=== PATIENT | female | born 1940 | race Hispanic/Latino ===

== ENCOUNTER → 2019-04-06 | Day surgery (SDC) | payer MEDICARE, OTHER ==
[2019-04-03 14:07] LABS: BASOPHILS % 0.1 % (0.0-1.0); EOSINOPHILS # (AUTO) 0.1 (0.0-0.4); HEMATOCRIT 35.2 % (34.2-44.1); HEMOGLOBIN 11.8 g/dL (12.0-16.0); LYMPHOCYTES # (AUTO) 1.9 (1.0-3.2); LYMPHOCYTES % 20.3 % (18.0-39.1); MEAN CORPUSCULAR HEMOGLOBIN 30.1 pg (28-32); MEAN CORPUSCULAR HGB CONC 33.5 g/dL (31-35); MEAN CORPUSCULAR VOLUME 89.8 fL (81-99); MONOCYTES # (AUTO) 0.8 (0.2-0.8); MONOCYTES % 8.2 % (4.4-11.3); NEUTROPHILS # (AUTO) 6.5 (2.1-6.9); NEUTROPHILS % 70.2 % (38.7-80.0); PLATELET COUNT 265 x10e3/uL (140-360); RED BLOOD COUNT 3.92 x10e6/uL (3.6-5.1); RED CELL DISTRIBUTION WIDTH 13.3 % (11.7-14.4)
[~2019-04-06] MED LIST: AMLODIPINE BESYL5 MG PO; ASPIR-LOW81 MG PO; BENICAR HCT 401 EACH PO; CARVEDILOL12.5 MG PO; DIOVAN160 MG PO; FENTANYL CITRATE/PF 100MCG/2 ML INJ ONE; FUROSEMIDE20 MG PO; GABAPENTIN300 MG PO; HYOSCYAMINE 0.125 MG TAB ONE; METOCLOPRAMIDE10 MG PO; NEXIUM40 MG PO; NIFEDIPINE ER90 MG PO; OMEPRAZOLE PO; OXYBUTYNIN CHLOR5 MG PO; PROPOFOL IV EMULSION 10 MG/ML 50 ML VIAL ONE; SIMVASTATIN40 MG PO; TYLENOL EXTRA500 MG PO; VIT D 3 PO; VITAMIN D250000 UNIT PO; diclofenac sodium TOP
--- OUTSIDE RECORDS SUMMARY | 2019-04-06 08:06 | XMS REPORT | Continuity of Care Document ---
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 Active 11/16/2016 [facility] Discharge Diagnosis: Contusion of face 04/13/2015 04/16/2015 [facility] Discharge Diagnosis: Closed head injury without loss of consciousness 04/13/2015 04/16/2015 [facility] Discharge Diagnosis: Knee sprain 04/13/2015 04/16/2015 [facility] FALL/EYE INJURY Active 04/13/2015 [facility] Gastroesophageal reflux disease (disorder) Active 07/01/2014 Problem 02/01/2019 Data migrated from [employer] on 12/25/14. [facility] Osteopenia (disorder) Active 07/01/2014 Problem 02/01/2019 Data migrated from [employer] on 12/25/14. [facility] Chronic kidney disease stage 1 (disorder) Active 12/01/2013 Problem 02/01/2019 Data migrated from [employer] on 12/25/14. [facility] Diabetic renal disease (disorder) Active 12/01/2013 Problem 02/01/2019 Data migrated from [employer] on 12/25/14. [facility] Microalbuminuria (finding) Resolved 12/01/2013 Problem 02/01/2019 Data migrated from [employer] on 12/25/14. [facility] FALL Active 08/08/2013 [facility] Acute cystitis (disorder) Resolved 08/04/2013 Problem 02/01/2019 Data migrated from [employer] on 02/12/15. [facility] Diabetic polyneuropathy (disorder) Active 01/26/2013 Problem 02/01/2019 Data migrated from [employer] on 12/25/14. [facility] Hypercholesterolemia (disorder) Resolved 01/26/2013 Problem 02/01/2019 Data migrated from [employer] on 12/25/14. [facility] Peripheral edema (disorder) Active 01/26/2013 Problem 02/01/2019 Data migrated from [employer] on 12/25/14. [facility] Urinary incontinence (finding) Active 01/26/2013 Problem 02/01/2019 Data migrated from [employer] on 12/25/14. [facility] FLANK PAIN Active 11/18/2011 [facility] Acute urinary tract infection (disorder) Active Problem 02/01/2019 [facility] Benign essential hypertension (disorder) Active Problem 02/01/2019 [facility] Child examination finding (finding) Resolved Problem 02/01/2019 Data migrated from [employer] on 02/11/15. 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 [facility] Gynecologic examination (procedure) Resolved Problem 02/01/2019 Data migrated from [employer] on 02/11/15. [facility] Hypertensive disorder, systemic arterial (disorder) Resolved Problem 02/01/2019 [facility] Hyperlipidemia (disorder) Resolved Problem 02/01/2019 [facility] Cataract (disorder) Active Problem 02/01/2019 [facility] Mixed hyperlipidemia (disorder) Active Problem 02/01/2019 [facility] Neurologic disorder associated with diabetes mellitus (disorder) Active Problem 02/01/2019 Data migrated from [employer] on 12/25/14. [facility] Occult blood in stools (disorder) Active Problem 02/01/2019 [facility] Osteoporosis (disorder) Active Problem 02/01/2019 [facility] Patient encounter status (finding) Active Problem 02/01/2019 [facility] Pelvic mass (disorder) Active Problem 02/01/2019 [facility] Physical examination procedure (procedure) Resolved Problem 02/01/2019 [facility] migrated from [employer] [facility] 02[facility]11/[facility] Active Problem 02/01/2019 [facility] Serum vitamin B12 low (finding) Active Problem 02/01/2019 [facility] Prediabetes (finding) Active Problem 02/01/2019 [facility] Breast neoplasm screening (procedure) Active Problem 02/01/2019 [facility] Cobalamin deficiency (disorder) Active Problem 02/01/2019 [facility] Conjunctival hemorrhage (disorder) Active Problem 02/01/2019 [facility] Decreased vitamin D (finding) Active Problem 02/01/2019 [facility] Red eye (disorder) Active Problem 02/01/2019 [facility] Screening status (finding) Active Problem 02/01/2019 [facility] Tinea pedis (disorder) Active Problem 02/01/2019 [facility] Urge incontinence of urine (finding) Active Problem 02/01/2019 [facility] Neck pain (finding) Active Problem 02/01/2019 [facility] RADICULOPATHY Active [facility] INTRA-ABD AND PELVIC SWELLING, MASS AND Active [facility] AGE-RELATED OSTEOPOROSIS W/O CURRENT PAT Active [facility] Medications Medication Details Route Status Patient Instructions Ordering Provider Order Date Source Diclofenac Sodium 0.01 MG/MG Topical Gel [Voltaren] 4 gm=1 appl, TOP, BID, PRN Apply to affected area, # 100 gm, 1 Refill(s), Pharmacy: [facility] [id number] Active 01/19/2019 [facility] losartan 100 mg oral tablet =1 tab, PO, Daily, # 90 tab, DISCONTINUE VALSARTAN, Pharmacy: [facility] [id number] Active 12/10/2018 [facility] carvedilol 12.5 mg oral tablet =1 tab, PO, BID, # 180 tab, Pharmacy: [facility] [id number] Active 12/10/2018 [facility] Alendronic acid 35 MG Oral Tablet 35 mg=1 tab, PO, Q7D, # 12 tab, 1 Refill(s), Pharmacy: [facility] [id number] Active 10/17/2018 [facility] Terbinafine hydrochloride 10 MG/ML Topical Cream [Lamisil] 1 appl, TOP, BID, X 30 day, # 15 gm, 0 Refill(s), Pharmacy: [facility] [id number] No Longer Active 07/14/2018 [facility] losartan 100 mg oral tablet See Instructions, TAKE 1 TABLET BY MOUTH DAILY FOR 90 DAYS DISCONTINUE VALSARTAN, # 90 tab, 1 Refill(s), Pharmacy: [facility] [id number] No Longer Active 06/11/2018 [facility] Sterile Lubricating Tears ophthalmic solution 1 drp, RIGHT EYE, BID, # 5 mL, 0 Refill(s), [facility] [id number] No Longer Active 06/05/2018 [facility] losartan 100 mg oral tablet See Instructions, # 90 tab, TAKE 1 TABLET BY MOUTH DAILY DISCONTINUE VALSARTAN, 06/11/18 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, [facility] [id number] No Longer Active 03/18/2018 [facility] losartan 100 mg oral tablet 100 mg=1 tab, PO, Daily, discontinue valsartan, # 30 tab, 0 Refill(s), [facility] [id number] Inactive 03/17/2018 [facility] simvastatin 5 mg oral tablet 5 mg=1 tab, PO, Bedtime, # 90 tab, 1 Refill(s), [facility] [id number] Active 01/09/2018 [facility] Furosemide 20 MG Oral Tablet See Instructions, # 90 tab, Refill(s) 1, TAKE 1 TABLET BY MOUTH EVERY DAY NEEDED FOR EDEMA, [facility] [id number] Active 10/02/2017 [facility] simvastatin 20 mg oral tablet 20 mg=1 tab, PO, Bedtime, # 90 tab, 1 Refill(s), [facility] [id number] Active 09/30/2017 [facility] Furosemide 20 MG Oral Tablet 20 mg=1 tab, PO, PRN, PRN Edema, # 60 tab, 1 Refill(s), Pharmacy: [facility] [id number] No Longer Active 09/30/2017 [facility] NIFEdipine 30 mg oral tablet, extended release 30 mg=1 tab, PO, Daily, # 90 tab, 1 Refill(s), [id number] Active 09/30/2017 [facility] Vitamin B12 1000 mcg oral tablet 1,000 microgram=1 tab, PO, Daily, # 90 tab, 1 Refill(s), Pharmacy: [facility] [id number] Active 06/13/2017 [facility] Clonidine Hydrochloride 0.1 MG Oral Tablet 0.1 mg, Route: PO, Drug form: TAB, ONCE, Dosing Weight 90.909, kg, Priority: STAT, Start date: 04/13/15 16:23:00, Stop date: 04/13/15 16:23:00 Inactive 04/13/2015 [facility] Acetaminophen 325 MG / Hydrocodone Bitartrate 5 MG Oral Tablet 1 tab, Route: PO, Drug Form: TAB, Dosing Weight 90.909, kg, ONCE, STAT, Start date: 04/13/15 15:58:00, Stop date: 04/13/15 15:58:00 Inactive 04/13/2015 [facility] acetaminophen-hydrocodone 325 mg-5 mg oral tablet 1 tab, PO, Q4H, for pain, # 12 tab, 0 Refill(s) Active [place] 08/08/2013 [facility] acetaminophen-hydrocodone 325 mg-10 mg oral tablet 1 tab, Route: PO, Drug Form: TAB, Dosing Weight 72.727, kg, ONCE, STAT, Start date: 08/08/13 2:26:00, Stop date: 08/08/13 2:26:00Do not exceed 4gm/day of acetaminophen. (Same as: [place] 325/10) Inactive [place] 08/08/2013 [facility] Bactrim DS oral tablet 1 tab, PO, BID, 20 tab, Substitution Allowed, Maintenance PO Active [place] 11/19/2011 [facility] magnesium citrate 8.85% oral liquid 150 ml, PO, ONCE, 300 ml, Substitution Allowed, Maintenance, LIQ PO Active [place] 11/19/2011 [facility] Saline Flush 0.9% 5 ml, Route: IVP, Drug Form: INJ, PRN, PRN Line Flush, Start date: 11/18/11 21:01:00, Duration: 24 hr, Stop date: 11/19/11 21:00:00 IVP No Longer Active [place] 11/19/2011 [facility] Enablex 15 mg oral tablet, extended release 15 mg, 1 tab, PO, Daily, 30 tab, Substitution Allowed, ERTAB PO Active 11/19/2011 [facility] pantoprazole 40 mg oral enteric coated tablet 40 mg, 1 tab, PO, Daily, 30 tab, Substitution Allowed, ECTAB PO Active 11/19/2011 [facility] gabapentin 300 mg oral capsule 300 mg, 1 cap, PO, TID, 90 cap, Substitution Allowed PO Active 11/19/2011 [facility] hydrochlorothiazide 12.5 mg oral capsule 12.5 mg, 1 cap, PO, Daily, 30 cap, Substitution Allowed PO Active 11/19/2011 [facility] lisinopril 20 mg oral tablet 20 mg, 1 tab, PO, Daily, 30 tab, Substitution Allowed, TAB PO Active 11/19/2011 [facility] metoprolol 100 mg oral tablet, extended release 100 mg, 1 tab, PO, Daily, 30 tab, Substitution Allowed PO Active 11/19/2011 [facility] metFORmin 500 mg oral tablet 500 mg, 1 tab, PO, Before Dinner, 30 tab, Substitution Allowed PO Active 11/19/2011 [facility] tetanus-diphtheria toxoids adult intramuscular suspension 0.5 ml, Route: IM, ONCE, STAT, Start date: 01/08/11 22:02:00, Stop date: 01/08/11 22:02:00 Inactive [place] 01/09/2011 [facility] Allergies, Adverse Reactions, Alerts Substance Category Reaction Severity Reaction type Status Date Reported Comments Source amLODIPine<sup>1</sup> Assertion Drug allergy Active 07/07/2013 Data migrated from [employer] on 11/25/14. Originally documented as AMLODIPINE BESYLATE. leg swelling [facility] Immunizations Immunization Date Given Site Status Last Updated Comments Source influenza virus vaccine, inactivated<sup>1</sup> 06/05/2018 Left Deltoid completed [facility] Result Comment: Patient tolerated well [facility] influenza virus vaccine, inactivated 06/13/2017 Left Deltoid completed [facility] pneumococcal 23-valent vaccine<sup>1</sup> 08/04/2013 Right Deltoid completed [facility] Result Comment: pneumovax 23 [cvx33]. Migrated from OBS VIS: Pneumovax 23: 05/03/09 ; Data migrated from [employer] on 08/30/2015. [facility] pneumococcal 23-valent vaccine<sup>2</sup> 08/04/2013 Right Deltoid completed [facility] Result Comment: pneumovax 23 [cvx33]. Migrated from OBS VIS: Pneumovax 23: 05/03/09 ; Data migrated from [employer] on 08/30/2015. [facility] Hx influenza vaccine-unspecified<sup>2</sup> 07/30/2012 completed [facility] Result Comment: historical. Migrated from OBS ; Data migrated from [employer] on 08/30/2015. [facility] Hx influenza vaccine-unspecified<sup>1</sup> 07/30/2012 completed GE Result Comment: historical. Migrated from OBS ; Data migrated from [employer] on 08/30/2015. [facility] Hx influenza vaccine-unspecified<sup>3</sup> 07/30/2012 completed [facility] Result Comment: historical. Migrated from OBS ; Data migrated from [employer] on 08/30/2015. [facility] tetanus-diphtheria toxoids 01/09/2011 Left Deltoid completed [place] [facility] tetanus-diphtheria toxoids 01/09/2011 completed [facility] tetanus-diphtheria toxoids 01/09/2011 Left Deltoid completed [facility] Results Order Name Results Value Reference Range Date Interpretation Comments Source URINALYSIS UA WBC 6-10 /HPF *ABN* (11/18/2011 22:00:00) None Seen 11/19/2011 ABN [facility] URINALYSIS UA RBC 0-2 /HPF (11/18/2011 22:00:00) 0 - 2 11/19/2011 Normal [facility] URINALYSIS UA Bacteria Many /HPF (11/18/2011 22:00:00) None Seen 11/19/2011 Normal [facility] URINALYSIS UA Renal Epi 0-2 /LPF *ABN* (11/18/2011 22:00:00) 11/19/2011 ABN [facility] URINALYSIS Micro? Performed (11/18/2011 22:00:00) 11/19/2011 Normal [facility] URINALYSIS UA Sq Epi Rare /LPF (11/18/2011 22:00:00) Few 11/19/2011 Normal [facility] URINALYSIS UA Urobilinogen 0.2 0.1 - 1.0 11/19/2011 Normal [facility] URINALYSIS UA Nitrite Positive *ABN* (11/18/2011 22:00:00) Negative 11/19/2011 ABN [facility] URINALYSIS UA Leuk Est Large *ABN* (11/18/2011 22:00:00) Negative 11/19/2011 ABN [facility] URINALYSIS UA Bili Negative *NA* (11/18/2011 22:00:00) Negative 11/19/2011 NA [facility] URINALYSIS UA Blood Trace *ABN* (11/18/2011 22:00:00) Negative 11/19/2011 ABN [facility] URINALYSIS UA Protein Negative (11/18/2011 22:00:00) Negative 11/19/2011 Normal [facility] URINALYSIS UA Glucose Negative (11/18/2011 22:00:00) Negative 11/19/2011 Normal [facility] URINALYSIS UA Spec Grav 1.010 <=1.030 11/19/2011 Normal [facility] URINALYSIS UA pH 5.5 5.0 - 8.0 11/19/2011 Normal [facility] URINALYSIS UA Ketones Negative *NA* (11/18/2011 22:00:00) Negative 11/19/2011 NA [facility] URINALYSIS UA Color Yellow *NA* (11/18/2011 22:00:00) Yellow 11/19/2011 NA [facility] URINALYSIS UA Turbidity Clear (11/18/2011 22:00:00) Clear 11/19/2011 Normal [facility] CHEMISTRY Glucose Lvl 129 70 - 99 11/19/2011 HI <sup>1</sup>Interpretive Data: Adult reference range values reflect the clinical guidelines of the [employer]. [facility] CHEMISTRY BUN 19 7 - 22 11/19/2011 Normal [facility] CHEMISTRY Creatinine Lvl 0.7 0.5 - 1.4 11/19/2011 Normal [facility] CHEMISTRY Sodium Lvl 136 135 - 145 11/19/2011 Normal [facility] CHEMISTRY Potassium Lvl 3.4 3.5 - 5.1 11/19/2011 LOW [facility] CHEMISTRY Chloride Lvl 99 95 - 109 11/19/2011 Normal [facility] CHEMISTRY CO2 26 24 - 32 11/19/2011 Normal [facility] CHEMISTRY Calcium Lvl 9.5 8.5 - 10.5 11/19/2011 Normal [facility] CHEMISTRY Albumin Lvl 3.7 3.5 - 5.0 11/19/2011 Normal [facility] CHEMISTRY Total Protein 7.9 6.4 - 8.4 11/19/2011 Normal [facility] CHEMISTRY ALT 20 0 - 65 11/19/2011 Normal [facility] CHEMISTRY Alk Phos 97 39 - 136 11/19/2011 Normal [facility] CHEMISTRY AST 11 0 - 37 11/19/2011 Normal [facility] CHEMISTRY Bili Total 0.4 0.2 - 1.3 11/19/2011 [facility] CHEMI[facility] AGAP 14.4 10.0 - 20.0 11/19/2011 [facility] CHEMISTRY B/C Ratio 27 6 - 25 11/19/2011 [facility] CHEMISTRY Globulin 4.2 2.0 - 4.0 11/19/2011 [facility] CHEMISTRY A/G Ratio 0.9 0.7 - 1.6 11/19/2011 [facility] CHEMISTRY Lipase Lvl 230 73 - 393 11/19/2011 [facility] HEMATOLOGY Lymphocytes # 2.0 1.0 - 5.5 11/19/2011 [facility] HEMAT[facility]Y Monocytes # 0.7 0.0 - 0.8 11/19/2011 [facility] HEMATOLOGY Segs-Bands # 6.4 1.5 - 8.1 11/19/2011 [facility] HEMAT[facility] Basophils 0.2 0.0 - 1.0 11/19/2011 [facility] HEMAT[facility]Y Lymphocytes 21.3 20.0 - 40.0 11/19/2011 [facility] HEMAT[facility]Y Eosinophils # 0.2 0.0 - 0.5 11/19/2011 [facility]EMAT[facility] Basophils # 0.0 0.0 - 0.2 11/19/2011 [facility] HEMAT[facility] Monocytes 7.4 2.0 - 12.0 11/19/2011 [facility]EMAT[facility] Eosinophils 1.8 0.0 - 4.0 11/19/2011 [facility] HEMATOLOGY Segs 69.3 45.0 - 75.0 11/19/2011 [facility] HEMAT[facility]Y RBC 3.70 4.20 - 5.40 11/19/2011 L[facility]EMAT[facility] Hgb 11.7 12.0 - 16.0 11/19/2011 [facility] HEMATOLOGY WBC 9.3 3.7 - 10.4 11/19/2011 [facility] HEMAT[facility]Y MPV 10.1 7.4 - 10.4 11/19/2011 [facility] HEMAT[facility] MCHC 33.9 32.0 - 36.0 11/19/2011 [facility] HEMAT[facility] RDW 13.3 11.5 - 14.5 11/19/2011 [facility] HEMAT[facility] MCH 31.5 27.0 - 31.0 11/19/2011 [facility] HEMATOLOGY Platelet 212 133 - 450 11/19/2011 [facility] HEMAT[facility] MCV 93.0 81.0 - 99.0 11/19/2011 Normal [facility] HEMATOLOGY Hct 34.4 36.0 - 48.0 11/19/2011 LOW [facility] Pathology Reports No Data Provided for This Section Diagnostic Reports Report Value Date Source Bone Density Scan BONE DENSITY: HISTORY: Osteoporosis. TECHNIQUE: Dual energy x-ray absorptiometry (DEXA) was done over the lumbar spine and left hip on a [employer]ologic Discovery SL scanner. FINDINGS: The total T-score over the lumbar spine is -1.7, consistent with osteopenia. The previous T-score on 12/13/2008 was -2.1, consistent with osteopenia. There has been a 4.7% decrease in BMD since the last exam. The global T-score over the left hip is -1.3, consistent with osteopenia. The previous T-score was -0.9, consistent with normal bone density. There has been a 6.5% decrease in BMD since the last exam. The focal T-score over the left femoral neck is -2.8, consistent with osteoporosis. The BMD is 0.549 g/sq cm. The previous T-score over the left femoral neck was -2.5, consistent with osteoporosis, with a previous BMD of 0.575 g/sq cm. There has been a 4.5% decrease in BMD since the previous exam. IMPRESSION: 1. Osteopenia of the lumbar spine. 2. Normal global bone density of the left hip. 3. Osteoporosis of the left femoral neck. FOR YOUR INFORMATION: The World Health Organization has established that OSTEOPOROSIS occurs at -2.5 or more standard deviations (T-score) below peak bone mass (T-score on the Hologic report). OSTEOPENIA occurs at -1.0 to -2.5 standard deviations (T-score) below peak bone mass. [id number] 11/30/2016 [facility] Pelvis Complete US Clinical Indication: pelvic mass; Comparison: None US PELVIS Technique: Grayscale, color and Doppler transabdominal and transvaginal imaging of the pelvis was performed with standard technique. FINDINGS: TRANSABDOMINAL PELVIC ULTRASOUND: UTERUS: The transabdominal pelvic ultrasound evaluation of the uterus shows anteverted uterus. The uterus measures 7.9 x 3.4 x 3.6 cm. There is normal parenchymal echotexture. The endometrial stripe measures 3 mm in thickness. Calcifications in the uterus adjacent to the endometrial stripe and myometrium. OVARIES: The transabdominal pelvic sonographic images show that the right ovary measures 1.8 x 1.2 x 1.7 cm and the left ovary is not seen. No adnexal masses. OTHER FINDINGS: The transabdominal sonographic images show no free fluid in the pelvic cul-de-sac. If there is further concern, followup pelvic sonography or MRI of the pelvis may be performed. IMPRESSION: 1. No significant sonographic abnormalities of the pelvis. No pelvic mass is identified. 2. Uterine calcifications which may be calcified fibroids or vascular calcifications. 3. Right ovary unremarkable. Left ovary not seen. SL: [place] 11/23/2016 [facility] Spine cervical wo contrast CT CT BRAIN, CERVICAL SPINE, AND FACE WITHOUT CONTRAST INDICATION: Posttraumatic head, face, and neck pain COMPARISON: None DISCUSSION: BRAIN: There is no evidence of acute vascular insults, space occupying lesions, hemorrhage, hydrocephalus, midline shift, or extra-axial collections. The calvarium is intact. CERVICAL SPINE: Image detail is degraded by motion artifacts. Grossly, there are no fractures or subluxations. No gross soft tissue injuries are seen. Ligament, spinal cord and/or vascular abnormalities cannot be excluded on the basis of this examination. There is moderate to advanced spondylosis throughout the cervical spine, resulting in foraminal stenosis at multiple levels, most severe bilaterally at C3-C4. There may be moderate or severe spinal canal stenosis at C4-C5 and C5-C6. FACE: Soft tissues: There is mild left premaxillary soft tissue swelling. Bones: No fractures are visualized. Orbits: The globes are grossly intact. There are no intraconal or extraconal abnormalities. Sinuses: The paranasal sinuses are clear. IMPRESSION: 1. No acute intracranial or cervical spine abnormalities. 2. No acute facial bone fractures. 3. Moderate to advanced cervical spondylosis, potentially resulting in foraminal and spinal canal stenosis at multiple levels. SL: 16 04/13/2015 [facility] Facial bone wo contrast CT CT BRAIN, CERVICAL SPINE, AND FACE WITHOUT CONTRAST INDICATION: Posttraumatic head, face, and neck pain COMPARISON: None DISCUSSION: BRAIN: There is no evidence of acute vascular insults, space occupying lesions, hemorrhage, hydrocephalus, midline shift, or extra-axial collections. The calvarium is intact. CERVICAL SPINE: Image detail is degraded by motion artifacts. Grossly, there are no fractures or subluxations. No gross soft tissue injuries are seen. Ligament, spinal cord and/or vascular abnormalities cannot be excluded on the basis of this examination. There is moderate to advanced spondylosis throughout the cervical spine, resulting in foraminal stenosis at multiple levels, most severe bilaterally at C3-C4. There may be moderate or severe spinal canal stenosis at C4-C5 and C5-C6. FACE: Soft tissues: There is mild left premaxillary soft tissue swelling. Bones: No fractures are visualized. Orbits: The globes are grossly intact. There are no intraconal or extraconal abnormalities. Sinuses: The paranasal sinuses are clear. IMPRESSION: 1. No acute intracranial or cervical spine abnormalities. 2. No acute facial bone fractures. 3. Moderate to advanced cervical spondylosis, potentially resulting in foraminal and spinal canal stenosis at multiple levels. SL: 04/13/2015 [facility] Brain wo contrast CT CT BRAIN, CERVICAL SPINE, AND FACE WITHOUT CONTRAST INDICATION: Posttraumatic head, face, and neck pain COMPARISON: None DISCUSSION: BRAIN: There is no evidence of acute vascular insults, space occupying lesions, hemorrhage, hydrocephalus, midline shift, or extra-axial collections. The calvarium is intact. CERVICAL SPINE: Image detail is degraded by motion artifacts. Grossly, there are no fractures or subluxations. No gross soft tissue injuries are seen. Ligament, spinal cord and/or vascular abnormalities cannot be excluded on the basis of this examination. There is moderate to advanced spondylosis throughout the cervical spine, resulting in foraminal stenosis at multiple levels, most severe bilaterally at C3-C4. There may be moderate or severe spinal canal stenosis at C4-C5 and C5-C6. FACE: Soft tissues: There is mild left premaxillary soft tissue swelling. Bones: No fractures are visualized. Orbits: The globes are grossly intact. There are no intraconal or extraconal abnormalities. Sinuses: The paranasal sinuses are clear. IMPRESSION: 1. No acute intracranial or cervical spine abnormalities. 2. No acute facial bone fractures. 3. Moderate to advanced cervical spondylosis, potentially resulting in foraminal and spinal canal stenosis at multiple levels. SL: 04/13/2015 [facility] Knee 1-2 Views unilateral DX LEFT KNEE Portable, 2 views HISTORY: Left knee pain. TECHNIQUE: Frontal and lateral views of the left knee were obtained utilizing portable technique. FINDINGS: There is no evidence of effusion or other soft tissue abnormality. There are very mild degenerative changes. There slight irregularity and narrowing of the patellofemoral joint and minimal spurring superiorly. There slight narrowing of the medial compartment and mild spurring from the tibial spines pretty lateral compartment is unremarkable. There is no evidence of fracture, dislocation, or other acute osteoarticular abnormality. There are no destructive lesions. Mild vascular calcifications are noted involving the popliteal artery. CONCLUSION: 1. There is no evidence of fracture, dislocation, or acute change. 2. Mild degenerative changes. Coding: Knee AP and lateral SL: 13 Quirino Nunez M.D. 04/13/2015 [facility] Ankle 3 views RIGHT TIBIA/FIBULA RADIOGRAPH 4 VIEW, RIGHT ANKLE RADIOGRAPH 3 VIEWS INDICATION: Trauma COMPARISON: None IMPRESSION: 1. There is a minimally displaced acute comminuted fracture of the distal tibial metadiaphysis. 2. There is an acute comminuted fracture of the distal shaft of the fibula, above the level of the tibial plafond, with mild lateral displacement and medial angulation. 3. The ankle mortise is grossly intact. SL: 08/08/2013 [facility] Tibia fibula series RIGHT TIBIA/FIBULA RADIOGRAPH 4 VIEW, RIGHT ANKLE RADIOGRAPH 3 VIEWS INDICATION: Trauma COMPARISON: None IMPRESSION: 1. There is a minimally displaced acute comminuted fracture of the distal tibial metadiaphysis. 2. There is an acute comminuted fracture of the distal shaft of the fibula, above the level of the tibial plafond, with mild lateral displacement and medial angulation. 3. The ankle mortise is grossly intact. SL: 16 08/08/2013 [facility] Consultation Notes No Data Provided for This Section Discharge Summaries No Data Provided for This Section History and Physicals No Data Provided for This Section Vital Signs Vital Sign Value Date Comments Source BMI Calculated 25.94 [facility] Height 154.94 cm 01/19/[facility] Weight 62.273 01/19/2019 [facility] Temperature Oral (F) 97.8 F 01/19/2019 [facility] Respitory Rate 18 01/19/[facility] Systolic (mm Hg) 142 01/19/2019 [facility] Diastolic (mm Hg) 59 01/19/[facility] Heart Rate 49 01/19/[facility] Heart Rate 53 10/17/2018 [facility] Temperature Oral (F) 97.3 F 10/17/2018 [facility] Systolic (mm Hg) 194 10/17/2018 [facility] Diastolic (mm Hg) 69 10/17/2018 [facility] BMI Calculated 26.7 10/17/2018 [facility] Height 154.94 cm 10/17/2018 [facility] Weight 64.091 10/17/2018 [facility] Respitory Rate 14 10/17/2018 [facility] Weight 65 07/14/2018 [facility] Height 154.94 cm 07/14/2018 [facility] BMI Calculated 27.08 07/14/2018 [facility] Respitory Rate 16 07/14/2018 [facility] Heart Rate 53 07/14/2018 [facility] Temperature Oral (F) 97.0 F 07/14/2018 [facility] Systolic (mm Hg) 135 07/14/2018 [facility] Diastolic (mm Hg) 62 07/14/2018 [facility] Height 157.48 cm 06/05/2018 [facility] BMI Calculated 25.84 06/05/2018 [facility] Weight 64.091 06/05/2018 [facility] Systolic (mm Hg) 150 06/05/2018 [facility] Diastolic (mm Hg) 56 06/05/2018 [facility] Respitory Rate 15 06/05/2018 [facility] Heart Rate 69 06/05/2018 [facility] Temperature Oral (F) 97.8 F 06/05/2018 [facility] Weight 65.114 01/09/2018 [facility] BMI Calculated 25.43 01/09/2018 [facility] Temperature Oral (F) 97.6 F 01/09/2018 [facility] Heart Rate 62 01/09/2018 [facility] Height 160.02 cm 01/09/2018 [facility] Systolic (mm Hg) 111 01/09/2018 [facility] Diastolic (mm Hg) 60 01/09/2018 [facility] Weight 63.636 09/30/2017 [facility] BMI Calculated 24.85 09/30/2017 [facility] Heart Rate 51 09/30/2017 [facility] Temperature Oral (F) 97.7 F 09/30/2017 [facility] Respitory Rate 14 09/30/2017 [facility] Systolic (mm Hg) 112 09/30/2017 [facility] Diastolic (mm Hg) 52 09/30/2017 [facility] Height 160.02 cm 09/30/2017 [facility] Systolic (mm Hg) 141 06/13/2017 [facility] Diastolic (mm Hg) 60 06/13/2017 [facility] Weight 60.455 06/13/2017 [facility] Height 160.02 cm 06/13/2017 [facility] Heart Rate 99 06/13/2017 [facility] BMI Calculated 23.61 06/13/2017 [facility] Respitory Rate 14 06/13/2017 [facility] Temperature Oral (F) 97.8 F 06/13/2017 [facility] Heart Rate 60 04/13/2015 [facility] Systolic (mm Hg) 179 04/13/2015 [facility] Diastolic (mm Hg) 60 04/13/2015 [facility] Temperature Oral (F) 97.5 F 04/13/2015 [facility] Respitory Rate 18 04/13/2015 [facility] Diastolic (mm Hg) 79 04/13/2015 [facility] Respitory Rate 18 04/13/2015 [facility] Systolic (mm Hg) 229 04/13/2015 [facility] Heart Rate 51 04/13/2015 [facility] Temperature Oral (F) 98.4 F 04/13/2015 [facility] Weight 90.909 04/13/2015 [facility] Height 152.4 cm 04/13/2015 [facility] BMI Calculated 39.14 04/13/2015 [facility] Temperature Oral (F) 98.2 F 04/13/2015 [facility] Respitory Rate 18 04/13/2015 [facility] Heart Rate 56 04/13/2015 [facility] Systolic (mm Hg) 234 04/13/2015 [facility] Diastolic (mm Hg) 73 04/13/2015 [facility] Temperature Oral (F) 98.0 F 08/08/2013 [facility] Respitory Rate 18 08/08/2013 [facility] Heart Rate 60 08/08/2013 [facility] Diastolic (mm Hg) 66 08/08/2013 [facility] Systolic (mm Hg) 168 08/08/2013 [facility] Height 157.48 cm 08/08/2013 [facility] Weight 72.727 08/08/2013 [facility] Respitory Rate 18 08/08/2013 [facility] Heart Rate 56 08/08/2013 [facility] Temperature Oral (F) 98.4 F 08/08/2013 [facility] Diastolic (mm Hg) 77 08/08/2013 [facility] Systolic (mm Hg) 205 08/08/2013 [facility] Encounters Location Location Details Encounter Type Encounter Number Reason For Visit Attending Provider ADM Date DC Date Status Source [facility] Outpatient [id number] RADICULOPATHY AUDREY MCNEAL 05/14/2011 Active [facility] [id number] OBINNA THAKUR 11/18/2011 11/18/2011 Discharged [facility] [id number] GIN THOMPSON 08/08/2013 08/08/2013 Active [facility] Outpatient [id number] CASSI OLMOS 04/13/[address] [facility] [id number] Sarah Betancourten 04/13/2015 04/13/2015 [facility] Outpatient [id number] CASSI OLMOS 04/18/2015 [facility] [id number] CASSI RECAOLE 04/29/2015 [facility] [id number] CASSI RECAVARROSS 05/27/2015 [facility] [id number] CASSI OLMOS 07/08/2015 [facility] [id number] CASSI OLMOS 07/25/2015 [facility] [id number] CASSI CHACONVARROSS 08/12/2015 [facility] [id number] BILLY LEVY 11/07/2015 [facility] [id number] CASSI RECAVARROSS 01/13/2016 [facility] [id number] CASSI OLMOS 04/12/2016 [facility] [id number] CASSI RECAVARROSS 05/04/2016 [facility] [id number] CASSI OLMOS 08/03/2016 [facility] [id number] CASSI RECAVARROSS 08/17/2016 [facility] [id number] CASSI RECAVARROSS 11/16/2016 [facility] [id number] CASSI RECAVARROSS 11/23/2016 Active [facility] Outpatient [id number] Cassi Jamison 11/23/2016 11/24/2016 [facility] Outpatient [id number] Cassi Olmos Jamison 11/30/2016 12/01/2016 [facility] Outpatient [id number] CASSI CHACONVARROSS 12/03/2016 Active [facility] [id number] CASSI OLMOS 02/08/2017 Active [facility] Outpatient [id number] CASSI OLMOS 02/18/2017 Active [facility] [id number] CASSI OLMOS 02/22/2017 Active [facility] [id number] CASSI OLMOS 03/01/2017 Active [facility] [id number] CASSI OLMOS 06/06/2017 Active [facility] [id number] CASSI OLMOS 06/13/2017 Active [facility] Outpatient [id number] Cassi Jamison 06/13/2017 06/14/2017 [facility]patient [id number] CASSI OLMOS 09/19/2017 Active [facility] Ambulatory Pre-Reg [id number] Cassi Jamison 09/19/2017 09/19/2017 [facility] Outpatient [id number] CASSI OLMOS 09/30/2017 Active [facility] Outpatient [id number] Cassi Olmos Jamison 09/30/2017 10/01/2017 [facility] Outpatient [id number] CASSI OLMOS 01/09/2018 Active [facility] Outpatient [id number] Cassi Olmos Jamison 01/09/2018 01/10/2018 [facility] Outpatient [id number] CASSI OLMOS 06/05/2018 Active [facility] Outpatient [id number] Cassi Olmos Jamison 06/05/2018 06/06/2018 [facility] Outpatient [id number] CSASI OLMOS 07/10/2018 Active [facility] Ambulatory Pre-Reg [id number] Cassi Olmos Jamison 07/10/2018 07/10/2018 [facility] Outpatient [id number] CASSI OLMOS 07/14/2018 Active [facility] Outpatient [id number] Cassi Olmos Jamison 07/14/2018 07/15/2018 [facility] Outpatient [id number] Cassi Olmos Jamison 10/17/2018 Active [facility] Outpatient [id number] Cassi Olmos Jamison 10/17/2018 10/18/[address] [facility] Phone Message [id number] 11/21/2018 11/23/2018 Medical [facility] Outpatient [id number] Cassi Olmos Jamison 01/19/2019 Active [facility] Outpatient [id number] Cassi Olmos Jamison 01/19/2019 01/20/2019 Medical [facility] Procedures Procedure Code Date Perfomer Comments Source Glaucoma screening [id number] 02/26/2014 [facility] Procedure<sup>1</sup> [id number] 08/14/2013 right leg closed reduction [facility] Colonoscopy [id number] 03/20/2012 [facility] Bone density scan<sup>2</sup> [id number] 2008 [facility] Mammogram - screening<sup>3</sup> [id number] about 2 years ago Medical [facility] Procedure<sup>4</sup> 39608279 right breast surgery [facility] Cataract surgery<sup>3</sup> [id number] both [facility] Mammogram - screening<sup>4</sup> 14913045 about 2 years ago Medical [facility] Procedure<sup>5</sup> 14027267 right breast surgery [facility] Assessment and Plan No Data Provided for This Section Plan of Care No Data Provided for This Section Social History Social History Date Source Social History TypeResponse Alcohol Never Smoking Status Never smoker; Type: Cigars; Exposure to Tobacco Smoke None; Cigarette Smoking Last 365 Days No; Reg Smoking Cessation Counseling No entered on: 01/19/19 01/13/2016 [facility] Social History TypeResponse Alcohol Never Smoking Status Never smoker; Exposure to Tobacco Smoke None; Cigarette Smoking Last 365 Days No; Reg Smoking Cessation Counseling No 01/13/2016 [facility] Family History No Data Provided for This Section Advance Directives No Data Provided for This Section Functional Status No Data Provided for This Section
--- OUTSIDE RECORDS SUMMARY | 2019-04-06 08:06 | XMS REPORT | Summary of Care ---
Author Author [facility] Primary Care [facility] Organization [facility] Address Unknown Phone Unavailable Encounter HQ Delilah(FIN) [id number] Date(s): 07/10/18 - 07/10/18 [facility] [address] [address]- Attending Physician: Cassi Syed MD Vital Signs No data available for this section Problem List Condition Effective Dates Status Health Status Informant Acute cystitis1 08/04/13 Resolved Acute UTI(Confirmed) Active Benign essential Active HTN(Confirmed) Benign essential 01/26/13 Active hypertension(Confirm ed)2 Breast cancer Active screening(Confirmed) Child examination Resolved finding3 Chronic kidney 12/01/13 Active disease stage 14 B12 Active deficiency(Confirmed ) Conjunctival Active hemorrhage(Confirmed ) Low serum vitamin Active D(Confirmed) 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(Confirmed ) Diabetic 01/26/13 Active polyneuropathy5 Diabetic renal 12/01/13 Active disease6 DM (diabetes Resolved mellitus)(Confirmed) Evaluation finding7 Resolved Gastroesophageal 07/01/14 Active reflux disease(Confirmed)8 Gynecologic Resolved examination9 HTN Resolved (hypertension)(Confi rmed) Hypercholesterolemia 01/26/13 Resolved 10 Hyperlipidemia(Confi Resolved rmed) Cataract(Confirmed) Active Jtkzpjsweqofxdmu35 12/01/13 Resolved Hyperlipidemia, Active mixed(Confirmed) Cervical Active pain(Confirmed) Neurologic disorder Active associated with diabetes Occult blood Active positive stool(Confirmed) Gzhymsnlls18 07/01/14 Active Osteoporosis(Confirm Active ed) Annual physical Active exam(Confirmed) Pelvic Active mass(Confirmed) Peripheral edema14 01/26/13 Active Physical examination Resolved gwqunlmrw60 Prediabetes(Confirme Active d) Preoperative Active clearance(Confirmed) Red eye(Confirmed) Active Screen for colon Active cancer(Confirmed) Low serum vitamin Active B12(Confirmed) Tinea Active pedis(Confirmed) Urge Active incontinence(Confirm ed) Urinary 01/26/13 Active hfaimhqbzyxd87 1Data migrated from [employer] on 02/12/15. 2Data migrated from [employer] on 12/25/14. 3Data migrated from [employer] on 02/11/15. 4Data migrated from [employer] on 12/25/14. 5Data migrated from [employer] on 12/25/14. 6Data migrated from [employer] on 12/25/14. 7Data migrated from [employer] on 02/11/15. 8Data migrated from [employer] on 12/25/14. 9Data migrated from [employer] on 02/11/15. 10Data migrated from [employer] on 12/25/14. 11Data migrated from [employer] on 12/25/14. 12Data migrated from [employer] on 12/25/14. 13Data migrated from [employer] on 12/25/14. 14Data migrated from [employer] on 12/25/14. 15Data migrated from [employer] on 02/11/15. 16Data migrated from [employer] on 12/25/14. Allergies, Adverse Reactions, Alerts Substance Reaction Severity Status amLODIPine1 Active 1Data migrated from [employer] on 11/25/14. Originally documented as AMLODIPINE BESYLATE. leg swelling Medications carvedilol 12.5 mg oral tablet =1 tab, PO, BID, # 180 tab, Pharmacy: [facility] [id number] Start Date: 12/10/18 Status: Ordered losartan 100 mg oral tablet 100 mg=1 tab, PO, Daily, discontinue valsartan, # 30 tab, 0 Refill(s), Pharmacy: [facility] [id number] Start Date: 03/17/18 Stop Date: 03/17/18 Status: Completed losartan 100 mg oral tablet See Instructions, TAKE 1 TABLET BY MOUTH DAILY FOR 90 DAYS DISCONTINUE VALSARTAN , # 90 tab, 1 Refill(s), Pharmacy: [facility] [id number] Start Date: 06/11/18 Stop Date: 12/10/18 Status: Completed losartan 100 mg oral tablet See Instructions, # 90 tab, TAKE 1 TABLET BY MOUTH DAILY DISCONTINUE VALSARTAN, 06/11/18 8:03:20 [employer] [employer], Pharmacy: [facility] [id number] Start Date: 03/17/18 Stop Date: 06/11/18 Status: Completed losartan 100 mg oral tablet =1 tab, PO, Daily, # 90 tab, DISCONTINUE VALSARTAN, Pharmacy: [facility] [id number] Start Date: 12/10/18 Status: Ordered Results No data available for this section Immunizations Given and Recorded Vaccine Date Status Refusal Reason influenza virus vaccine, inactivated1 06/05/18 Given influenza virus vaccine, inactivated 06/13/17 Given pneumococcal 23-valent vaccine2 08/04/13 Given Hx influenza vaccine-unspecified3 07/30/12 Given tetanus-diphtheria toxoids 01/08/11 Given 1Result Comment: Patient tolerated well 2Result Comment: pneumovax 23 [cvx33]. Migrated from OBS VIS: Pneumovax 23: 05/03/09 ; Data migrated from [employer] on 08/30/2015. 3Result Comment: historical. Migrated from OBS ; Data migrated from [employer] on 08/30/2015. Procedures Procedure Date Related Diagnosis Body Site Status Glaucoma screening 02/26/14 Completed Procedure1 08/14/13 Completed Colonoscopy 03/20/12 Completed Bone density scan2 Completed Cataract surgery3 Completed Mammogram - screening4 Completed Procedure5 Completed 1right leg closed reduction 84780 3both 4about 2 years ago 5right breast surgery Social History Social History Type Response Alcohol Never Smoking Status Never smoker; Type: Cigars; Exposure to Tobacco Smoke None; Cigarette Smoking Last 365 Days No; Reg Smoking Cessation Counseling No entered on: 01/19/19 Assessment and Plan No data available for this section
--- OUTSIDE RECORDS SUMMARY | 2019-04-06 08:06 | XMS REPORT | CCD ---
Author Author Auto Generated Organization [facility] Address Unknown Phone Unavailable Care Team Providers Care Assistant Signal Maintainer Name Role Phone Rosmery Orozco CP Unavailable PCP, Not listed in HQ CP Unavailable Asmita Glez CP Unavailable ChartServer, Login CP Unavailable Jovan Mcneal RP Marcial Cortez CP Allergies, Adverse Reactions, Alerts Substance Reaction Status NKDA ?? Active Medications Medication Instructions Start Date End Date Status tetanus-diphtheria 0.5 ml, Route: IM, ONCE, STAT, 01/08/2011 01/08/2011 Completed toxoids adult Start date: 01/08/11 22:02:00, Stop intramuscular date: 01/08/11 22:02:00 suspension Immunizations Vaccine Date Status tetanus-diphtheria toxoids 01/08/2011 Auth (Verified)
--- OUTSIDE RECORDS SUMMARY | 2019-04-06 08:06 | XMS REPORT | Summary of Care ---
Author Author [facility] Organization [facility] Address Unknown Phone Unavailable Encounter AURELIO Mazariegos(ZAKIA) [id number] Date(s): 11/30/16 - 11/30/16 [facility] [address] [place] [address]- Discharge Disposition: Home or Self Care Attending Physician: Cassi Syed MD Referring Physician: Cassi Syed MD Vital Signs No data available for this section Problem List Condition Effective Dates Status Health Status Informant Acute cystitis1 08/04/13 Resolved Acute UTI(Confirmed) Active Benign essential Active HTN(Confirmed) Benign essential 01/26/13 Active hypertension(Confirm ed)2 Child examination Resolved finding3 Chronic kidney 12/01/13 Active disease stage 14 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(Confirmed ) Diabetic 01/26/13 Active polyneuropathy5 Diabetic renal 12/01/13 Active disease6 DM (diabetes Resolved mellitus)(Confirmed) Evaluation finding7 Resolved Gastroesophageal 07/01/14 Active reflux disease8 Gynecologic Resolved examination9 HTN Resolved (hypertension)(Confi rmed) Hypercholesterolemia 01/26/13 Active 10 Hyperlipidemia(Confi Resolved rmed) Cataract(Confirmed) Active Asjqekvvagpmejqe07 12/01/13 Active Hyperlipidemia, Active mixed(Confirmed) Neurologic disorder Active associated with diabetes ujewwodx59 Xnwaymfbfw49 07/01/14 Active Osteoporosis(Confirm Active ed) Pelvic Active mass(Confirmed) Peripheral edema14 01/26/13 Active Physical examination Resolved menpqacyl80 Low serum vitamin Active B12(Confirmed) Urinary 01/26/13 Active xwdditqtxlrs22 1Data migrated from [employer] on 02/12/15. [...] documented as AMLODIPINE BESYLATE. leg swelling Medications No data available for this section Results No data available for this section Immunizations Given and Recorded Vaccine Date Status Refusal Reason Hx influenza vaccine-unspecified1 07/30/12 Given pneumococcal 23-valent vaccine2 08/04/13 Given tetanus-diphtheria toxoids 01/08/11 Given 1Result Comment: historical. Migrated from OBS ; Data migrated from [employer] on 08/30/2015. 2Result Comment: pneumovax 23 [cvx33]. Migrated from OBS VIS: Pneumovax 23: 05/03/09 ; Data migrated from [employer] on 08/30/2015. Procedures Procedure Date Related Diagnosis Body Site Glaucoma screening 02/26/14 Procedure1 08/14/13 Colonoscopy 03/20/12 Bone density scan2 Mammogram - screening3 Procedure4 1right leg closed reduction 06525 3about 2 years ago 4right breast surgery Social History Social History Type Response Alcohol Never Smoking Status Never smoker; Exposure to Tobacco Smoke None; Cigarette Smoking Last 365 Days No; Reg Smoking Cessation Counseling No Assessment and Plan No data available for this section
--- OUTSIDE RECORDS SUMMARY | 2019-04-06 08:06 | XMS REPORT | Summary of Care ---
Author Author [facility] Organization [facility] Address Unknown Phone Unavailable Encounter HQ Delilah(ZAKIA) [id number] Date(s): 04/13/15 - 04/13/15 [facility] [address] [place] [address]- [phone] Discharge Diagnosis: Contusion of face Discharge Diagnosis: Closed head injury without loss of consciousness Discharge Diagnosis: Knee sprain Discharge Disposition: Home Attending Physician: Sarah Hebert DO Vital Signs 1 2 3 Most recent to oldest [Reference Range]: 152.4 cm (04/13/15 11:41 AM) Height 1 2 3 Most recent to oldest [Reference Range]: 97.5 DegF (04/13/15 6:25 PM) 98.4 DegF (04/13/15 3:56 PM) 98.2 DegF (04/13/15 11:41 AM) Temperature Oral [96.4-99.1 DegF] 1 2 3 Most recent to oldest [Reference Range]: 179/60 mmHg *HI* (04/13/15 6:25 PM) 234/73 mmHg *HI* (04/13/15 11:41 AM) Blood Pressure [90-140/60-90 mmHg] 229 mmHg *HI* (04/13/15 3:56 PM) Systolic Blood Pressure [90-140 mmHg] 1 2 3 Most recent to oldest [Reference Range]: 79 mmHg (04/13/15 3:56 PM) Diastolic Blood Pressure [60-90 mmHg] 1 2 3 Most recent to oldest [Reference Range]: 18 BRMIN (04/13/15 6:25 PM) 18 BRMIN (04/13/15 3:56 PM) 18 BRMIN (04/13/15 11:41 AM) Respiratory Rate [14-20 BRMIN] 1 2 3 Most recent to oldest [Reference Range]: 60 bpm (04/13/15 6:25 PM) 51 bpm *LOW* (04/13/15 3:56 PM) 56 bpm *LOW* (04/13/15 11:41 AM) Peripheral Pulse Rate [60-100 bpm] 1 2 3 Most recent to oldest [Reference Range]: 90.909 kg (04/13/15 11:41 AM) Weight 1 2 3 Most recent to oldest [Reference Range]: 39.14 m2 (04/13/15 11:41 AM) Body Mass Index Problem List Condition Effective Dates Status Health Status Informant Benign essential 01/26/13 Active hypertension1 Chronic kidney 12/01/13 Active disease stage 12 Diabetic 01/26/13 Active polyneuropathy3 Diabetic renal 12/01/13 Active disease4 DM (diabetes Resolved mellitus)(Confirmed) Gastroesophageal 07/01/14 Active reflux disease5 HTN Resolved (hypertension)(Confi rmed) Hypercholesterolemia 01/26/13 Active 6 Hyperlipidemia(Confi Resolved rmed) Microalbuminuria7 12/01/13 Active Neurologic disorder Active associated with diabetes mellitus8 Osteopenia9 07/01/14 Active Peripheral edema10 01/26/13 Active Urinary 01/26/13 Active 1Data migrated from [employer] on 12/25/14. 2Data migrated from [employer] on 12/25/14. 3Data migrated from [employer] on 12/25/14. 4Data migrated from [employer] on 12/25/14. 5Data migrated from [employer] on 12/25/14. 6Data migrated from [employer] on 12/25/14. 7Data migrated from [employer] on 12/25/14. 8Data migrated from [employer] on 12/25/14. 9Data migrated from [employer] on 12/25/14. 10Data migrated from [employer] on 12/25/14. 11Data migrated from [employer] on 12/25/14. Allergies, Adverse Reactions, Alerts Substance Reaction Severity Status amLODIPine1 Active 1Data migrated from [employer] on 11/25/14. Originally documented as AMLODIPINE BESYLATE. leg swelling Medications acetaminophen-hydrocodone 325 mg-5 mg oral tablet 1 tab, Route: PO, Drug Form: TAB, Dosing Weight 90.909, kg, ONCE, STAT, Start da te: 04/13/15 15:58:00, Stop date: 04/13/15 15:58:00 Start Date: 04/13/15 Stop Date: 04/13/15 Status: Completed cloNIDine 0.1 mg oral tablet 0.1 mg, Route: PO, Drug form: TAB, ONCE, Dosing Weight 90.909, kg, Priority: STA T, Start date: 04/13/15 16:23:00, Stop date: 04/13/15 16:23:00 Start Date: 04/13/15 Stop Date: 04/13/15 Status: Completed Results No data available for this section Immunizations Vaccine Date Refusal Reason tetanus-diphtheria toxoids 01/08/11 Procedures Procedure Date Related Diagnosis Body Site Glaucoma screening 02/26/14 Procedure1 08/14/13 Colonoscopy 03/20/12 Bone density scan2 Mammogram - screening3 Procedure4 1right leg closed reduction 75396 3about 2 years ago 4right breast surgery Social History Social History Type Response Alcohol Never Smoking Status Never smoker; Exposure to Tobacco Smoke None; Cigarette Smoking Last 365 Days No; Reg Smoking Cessation Counseling No Assessment and Plan No data available for this section
--- OUTSIDE RECORDS SUMMARY | 2019-04-06 08:06 | XMS REPORT | Summary of Care ---
Author Author [facility] Organization [facility] Address Unknown Phone Unavailable Encounter AURELIO Mazariegos(ZAKIA) [id number] Date(s): 11/23/16 - 11/23/16 [facility] [address] [place] [address]- Discharge Disposition: Home or Self Care Attending [...] Active 10 Hyperlipidemia(Confi Resolved rmed) Cataract(Confirmed) Active Enoizqysfnbsffjd85 12/01/13 Active Hyperlipidemia, Active mixed(Confirmed) Neurologic disorder Active associated with diabetes tpgsueri61 Maybdqrygt88 07/01/14 Active Osteoporosis(Confirm Active ed) Pelvic Active mass(Confirmed) Peripheral edema14 01/26/13 Active Physical examination Resolved bnhbxwvio84 Low serum vitamin Active B12(Confirmed) Urinary 01/26/13 Active wyqcxpaxhtln62 1Data migrated from [employer] on 02/12/15. [...] - screening3 Procedure4 1right leg closed reduction 53999 3about 2 years ago 4right breast surgery Social History Social History Type Response Alcohol Never Smoking Status Never smoker; Exposure to Tobacco Smoke None; Cigarette Smoking Last 365 Days No; Reg Smoking Cessation Counseling No Assessment and Plan No data available for this section
--- OUTSIDE RECORDS SUMMARY | 2019-04-06 08:06 | XMS REPORT | CCD ---
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 Role Phone Eliazar Iraheta CP Allergies, Adverse Reactions, Alerts Substance Reaction Status NKDA Active Medications Medication Instructions Start Date End Date Status Bactrim DS oral 1 tab, PO, BID, 20 tab, 11/18/2011 11/28/2011 Ordered tablet Substitution Allowed, Maintenance magnesium citrate 150 ml, PO, ONCE, 300 ml, 11/18/2011 Ordered 8.85% oral liquid Substitution Allowed, Maintenance, LIQ Saline Flush 0.9% 5 ml, Route: IVP, Drug Form: INJ, 11/18/2011 11/19/2011 Discontinued PRN, PRN Line Flush, Start date: 11/18/11 21:01:00, Duration: 24 hr, Stop date: 11/19/11 21:00:00 Enablex 15 mg oral 15 mg, 1 tab, PO, Daily, 30 tab, 11/18/2011 Ordered tablet, extended Substitution Allowed, ERTAB release pantoprazole 40 mg 40 mg, 1 tab, PO, Daily, 30 tab, 11/18/2011 Ordered oral enteric coated Substitution Allowed, ECTAB tablet tetanus-diphtheria 0.5 ml, Route: IM, ONCE, STAT, 01/08/2011 01/08/2011 Completed toxoids adult Start date: 01/08/11 22:02:00, Stop intramuscular date: 01/08/11 22:02:00 suspension gabapentin 300 mg 300 mg, 1 cap, PO, TID, 90 cap, 11/18/2011 Ordered oral capsule Substitution Allowed hydrochlorothiazide 12.5 mg, 1 cap, PO, Daily, 30 cap, 11/18/2011 Ordered 12.5 mg oral capsule Substitution Allowed lisinopril 20 mg 20 mg, 1 tab, PO, Daily, 30 tab, 11/18/2011 Ordered oral tablet Substitution Allowed, TAB metoprolol 100 mg 100 mg, 1 tab, PO, Daily, 30 tab, 11/18/2011 Ordered oral tablet, Substitution Allowed extended release metFORmin 500 mg 500 mg, 1 tab, PO, Before Dinner, 11/18/2011 Ordered oral tablet 30 tab, Substitution Allowed Immunizations Vaccine Date Status tetanus-diphtheria toxoids 01/08/2011 Auth (Verified) Results URINALYSIS Most recent to oldest [Reference Range]: 1 UA Turbidity [Clear] Clear (11/18/2011 22:00:00) UA Color [Yellow] Yellow *NA* (11/18/2011 22:00:00) UA pH [5.0-8.0] 5.5 (11/18/2011 22:00:00) UA Spec Grav [<=1.030] 1.010 (11/18/2011 22:00:00) UA Glucose [Negative] Negative (11/18/2011 22:00:00) UA Blood [Negative] Trace *ABN* (11/18/2011 22:00:00) UA Ketones [Negative] Negative *NA* (11/18/2011 22:00:00) UA Protein [Negative] Negative (11/18/2011 22:00:00) UA Urobilinogen [0.1-1.0 EU/dL] 0.2 EU/dL (11/18/2011 22:00:00) UA Bili [Negative] Negative *NA* (11/18/2011 22:00:00) UA Leuk Est [Negative] Large *ABN* (11/18/2011 22:00:00) UA Nitrite [Negative] Positive *ABN* (11/18/2011 22:00:00) UA WBC [None Seen /HPF] 6-10 /HPF *ABN* (11/18/2011 22:00:00) UA RBC [0-2 /HPF] 0-2 /HPF (11/18/2011 22:00:00) UA Bacteria [None Seen /HPF] Many /HPF (11/18/2011 22:00:00) UA Sq Epi [Few /LPF] Rare /LPF (11/18/2011 22:00:00) UA Renal Epi 0-2 /LPF *ABN* (11/18/2011 22:00:00) Micro? Performed (11/18/2011 22:00:00) CHEMISTRY Most recent to oldest [Reference Range]: 1 Sodium Lvl [135-145 mEq/L] 136 mEq/L (11/18/2011:01:00) Potassium Lvl [3.5-5.1 mEq/L] 3.4 mEq/L *LOW* (11/18/2011:01:00) Chloride Lvl [95-109 mEq/L] 99 mEq/L (11/18/2011:01:00) CO2 [24-32 mEq/L] 26 mEq/L (11/18/2011:01:00) AGAP [10.0-20.0 mEq/L] 14.4 mEq/L (11/18/2011:01:00) Creatinine Lvl [0.5-1.4 mg/dL] 0.7 mg/dL (11/18/2011:01:00) BUN [7-22 mg/dL] 19 mg/dL (11/18/2011:01:00) B/C Ratio [6-25] 27 *HI* (11/18/2011::00) Glucose Lvl [70-99 mg/dL] 129 mg/dL 1 *HI* (11/18/2011:01:00) Total Protein [6.4-8.4 g/dL] 7.9 g/dL (11/18/2011:01:00) Albumin Lvl [3.5-5.0 g/dL] 3.7 g/dL (11/18/2011:01:00) Globulin [2.0-4.0 g/dL] 4.2 g/dL *HI* (11/18/2011:01:00) A/G Ratio [0.7-1.6] 0.9 (11/18/2011:01:00) Calcium Lvl [8.5-10.5 mg/dL] 9.5 mg/dL (11/18/2011:01:00) ALT [0-65 U/L] 20 U/L (11/18/2011:01:00) AST [0-37 U/L] 11 U/L (11/18/2011:01:00) Alk Phos [39-136 U/L] 97 U/L (11/18/201100) Bili Total [0.2-1.3 mg/dL] 0.4 mg/dL (11/18/2011::00) Lipase Lvl [73-393 U/L] 230 U/L (11/18/201100) 1Interpretive Data: Adult reference range values reflect the clinical guidelinesof the [place] [employer]. HEMATOLOGY Most recent to oldest [Reference Range]: 1 WBC [3.7-10.4 K/CMM] 9.3 K/CMM (11/18/201100) RBC [4.20-5.40 M/CMM] 3.70 M/CMM *LOW* (11/18/201100) Hgb [12.0-16.0 g/dL] 11.7 g/dL *LOW* (11/18/2011::00) Hct [36.0-48.0 %] 34.4 % *LOW* (11/18/201100) MCV [81.0-99.0 fL] 93.0 fL (11/18/2011::00) MCH [27.0-31.0 pg] 31.5 pg *HI* (11/18/201100) MCHC [32.0-36.0 g/dL] 33.9 g/dL (11/18/2011::00) RDW [11.5-14.5 %] 13.3 % (11/18/201100) Platelet [133-450 K/CMM] 212 K/CMM (11/18/201100) MPV [7.4-10.4 fL] 10.1 fL (11/18/2011:00) Segs [45.0-75.0 %] 69.3 % (11/18/201100) Lymphocytes [20.0-40.0 %] 21.3 % (11/18/2011:00) Monocytes [2.0-12.0 %] 7.4 % (11/18/2011:00) Eosinophils [0.0-4.0 %] 1.8 % (11/18/2011 21:01:00) Basophils [0.0-1.0 %] 0.2 % (11/18/2011 21:01:00) Segs-Bands # [1.5-8.1 K/CMM] 6.4 K/CMM (11/18/2011 21:01:00) Lymphocytes # [1.0-5.5 K/CMM] 2.0 K/CMM (11/18/2011 21:01:00) Monocytes # [0.0-0.8 K/CMM] 0.7 K/CMM (11/18/2011 21:01:00) Eosinophils # [0.0-0.5 K/CMM] 0.2 K/CMM (11/18/2011 21:01:00) Basophils # [0.0-0.2 K/CMM] 0.0 K/CMM (11/18/2011 21:01:00)
--- OUTSIDE RECORDS SUMMARY | 2019-04-06 08:06 | XMS REPORT | CCD ---
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 Name Role Phone Analisa Michel CP Allergies, Adverse Reactions, Alerts Substance Reaction Status NKDA Active Medications Medication Instructions Start Date End Date Status acetaminophen-hydroc 1 tab, PO, Q4H, for pain, # 12 tab, 08/08/2013 Ordered odone 325 mg-5 mg 0 Refill(s) oral tablet tetanus-diphtheria 0.5 ml, Route: IM, ONCE, STAT, 01/08/2011 01/08/2011 Completed toxoids adult Start date: 01/08/11 22:02:00, Stop intramuscular date: 01/08/11 22:02:00 suspension acetaminophen-hydroc 1 tab, Route: PO, Drug Form: TAB, 08/08/2013 08/08/2013 Completed odone 325 mg-10 mg Dosing Weight 72.727, kg, ONCE, oral tablet STAT, Start date: 08/08/13 2:26:00, Stop date: 08/08/13 2:26:00Do not exceed 4gm/day of acetaminophen. (Same as: [place] 325/10) Immunizations Vaccine Date Status tetanus-diphtheria toxoids 01/08/2011 Auth (Verified) Vital Signs Most recent to oldest [Reference Range]: 1 2 Height 157.48 cm (08/08/2013 02:03:00) Temperature Oral [96.4-99.1 DegF] 98.0 DegF (08/08/2013 04:58:00) 98.4 DegF (08/08/2013 02:03:00) Systolic Blood Pressure [90-140 mmHg] 168 mmHg *HI* (08/08/2013 04:58:00) 205 mmHg *HI* (08/08/2013 02:03:00) Diastolic Blood Pressure [60-90 mmHg] 66 mmHg (08/08/2013 04:58:00) 77 mmHg (08/08/2013 02:03:00) Respiratory Rate [14-20 BRMIN] 18 BRMIN (08/08/2013 04:58:00) 18 BRMIN (08/08/2013 02:03:00) Peripheral Pulse Rate [60-100 bpm] 60 bpm (08/08/2013 04:58:00) 56 bpm *LOW* (08/08/2013 02:03:00) Weight 72.727 kg (08/08/2013 02:03:00)
--- OUTSIDE RECORDS SUMMARY | 2019-04-06 08:06 | XMS REPORT | Summary of Care ---
Author Author [facility] Primary [facility] Organization [facility] Address Unknown Phone Unavailable Encounter HQ Delilah(FIN) [id number] Date(s): 06/05/18 - 06/05/18 [facility] [address] [address]- Discharge Disposition: Home or Self Care Attending Physician: Cassi Syed MD Vital Signs Most recent to 1 oldest [Reference Range]: Height 157.48 cm (06/05/18 1:16 PM) Temperature Oral 97.8 DegF [96.4-99.1 DegF] (06/05/18 1:16 PM) Blood Pressure 150/56 mmHg [90-140/60-90 mmHg] *HI* (06/05/18 1:16 PM) Respiratory Rate 15 BRMIN [14-20 BRMIN] (06/05/18 1:16 PM) Peripheral Pulse 69 bpm Rate [60-100 bpm] (06/05/18 1:16 PM) Weight 64.091 kg (06/05/18 1:16 PM) Body Mass Index 25.84 m2 (06/05/18 1:16 PM) Problem List Condition Effective Dates Status Health [...] (diabetes Resolved mellitus)(Confirmed) Evaluation finding7 Resolved Gastroesophageal 12/4/14 Active reflux disease(Confirmed)8 Gynecologic Resolved examination9 HTN Resolved (hypertension)(Confi rmed) Hypercholesterolemia 01/26/13 Resolved 10 Hyperlipidemia(Confi Resolved rmed) Cataract(Confirmed) Active Zewagwighgfowdjt63 12/01/13 Resolved Hyperlipidemia, Active mixed(Confirmed) Neurologic disorder Active associated with diabetes wtumcieu46 Occult blood Active positive stool(Confirmed) Xsrdbparfc37 07/01/14 Active Osteoporosis(Confirm Active ed) Annual physical Active exam(Confirmed) Pelvic Active mass(Confirmed) Peripheral edema14 01/26/13 Active Physical examination Resolved sbltervtk89 Prediabetes(Confirme Active d) Preoperative Active clearance(Confirmed) Red eye(Confirmed) Active Screen for colon Active cancer(Confirmed) Low serum vitamin Active B12(Confirmed) Tinea Active pedis(Confirmed) Urge Active incontinence(Confirm ed) Urinary 01/26/13 Active ykelljezgviw93 1Data migrated from [employer] on 02/12/15. [...] documented as AMLODIPINE BESYLATE. leg swelling Medications Sterile Lubricating Tears ophthalmic solution 1 drp, RIGHT EYE, BID, # 5 mL, 0 Refill(s), Pharmacy: [facility] [id number] Start Date: 06/05/18 Stop Date: 10/17/18 Status: Discontinued Results No data available for this section Immunizations Given and Recorded Vaccine Date Status Refusal Reason influenza virus vaccine, inactivated1 06/05/18 Given influenza virus vaccine, inactivated 06/13/17 Given pneumococcal 23-valent vaccine2 08/04/13 Given Hx influenza vaccine-unspecified3 07/30/12 Given tetanus-diphtheria toxoids 01/08/11 Given 1Result Comment: Patient tolerated well 2Result Comment: pneumovax 23 [cvx33]. Migrated from OBS VIS: Pneumovax 23: 05/03/09 ; Data migrated from [email or web address] on 08/30/2015. 3Result Comment: historical. Migrated from OBS ; Data migrated from [email or web address] on 08/30/2015. Procedures Procedure Date Related Diagnosis Body Site Status Glaucoma screening 02/26/14 Completed Procedure1 08/14/13 Completed Colonoscopy 03/20/12 Completed Bone density scan2 Completed Cataract surgery3 Completed Mammogram - screening4 Completed Procedure5 Completed 1right leg closed reduction 70995 3both 4about 2 years ago 5right breast surgery Social History Social History Type Response Alcohol Never Smoking Status Never smoker; Type: Cigars; Exposure to Tobacco Smoke None; Cigarette Smoking Last 365 Days No; Reg Smoking Cessation Counseling No entered on: 10/17/18 Assessment and Plan No data available for this section
--- OUTSIDE RECORDS SUMMARY | 2019-04-06 08:07 | XMS REPORT | Summary of Care ---
Author Author [facility] Primary Care [facility] Organization [facility] Address Unknown Phone Unavailable Encounter HQ Bennyr_jesse(FIN) [id number] Date(s): 09/30/17 - 09/30/17 [facility] [address], [address] [place] [address]- [phone] Discharge Disposition: Home or Self Care Attending Physician: Cassi Syed MD Vital Signs Most recent to 1 oldest [Reference Range]: Height 160.02 cm (09/30/17 3:14 PM) Temperature Oral 97.7 DegF [96.4-99.1 DegF] (09/30/17 3:14 PM) Blood Pressure 112/52 mmHg [90-140/60-90 mmHg] (09/30/17 3:14 PM) Respiratory Rate 14 BRMIN [14-20 BRMIN] (09/30/17 3:14 PM) Peripheral Pulse 51 bpm Rate [60-100 bpm] *LOW* (09/30/17 3:14 PM) Weight 63.636 kg (09/30/17 3:14 PM) Body Mass Index 24.85 m2 (09/30/17 3:14 PM) Problem List Condition Effective Dates Status [...] Resolved examination9 HTN Resolved (hypertension)(Confi rmed) Hypercholesterolemia 7/1/13 Resolved 10 Hyperlipidemia(Confi Resolved rmed) Cataract(Confirmed) Active Qndgqrapxlrucyte32 12/01/13 Resolved Hyperlipidemia, Active mixed(Confirmed) Neurologic disorder Active associated with diabetes kesllazu02 Occult blood Active positive stool(Confirmed) Tdhoxrnpdo16 07/01/14 Active Osteoporosis(Confirm Active ed) Annual physical Active exam(Confirmed) Pelvic Active mass(Confirmed) Peripheral edema14 01/26/13 Active Physical examination Resolved qmdkowlvb31 Prediabetes(Confirme Active d) Preoperative Active clearance(Confirmed) Low serum vitamin Active B12(Confirmed) Urinary 01/26/13 Active pyznglrtnipy64 1Data migrated from [employer] on 02/12/15. [...] documented as AMLODIPINE BESYLATE. leg swelling Medications furosemide 20 mg oral tablet See Instructions, # 90 tab, Refill(s) 1, TAKE 1 TABLET BY MOUTH EVERY DAY NEE DED FOR EDEMA, Pharmacy: [facility] [id number] Start Date: 10/02/17 Status: Ordered furosemide 20 mg oral tablet 20 mg=1 tab, PO, PRN, PRN Edema, # 60 tab, 1 Refill(s), Pharmacy: [facility] [id number] Start Date: 09/30/17 Stop Date: 10/02/17 Status: Completed NIFEdipine 30 mg oral tablet, extended release 30 mg=1 tab, PO, Daily, # 90 tab, 1 Refill(s), Pharmacy: [id number] Start Date: 09/30/17 Stop Date: 03/29/18 Status: Ordered simvastatin 20 mg oral tablet 20 mg=1 tab, PO, Bedtime, # 90 tab, 1 Refill(s), Pharmacy: [facility] [id number] Start Date: 09/30/17 Stop Date: 03/29/18 Status: Ordered Results No data available for this section Immunizations Given and Recorded Vaccine Date Status Refusal Reason influenza virus vaccine, inactivated 06/13/17 Given pneumococcal 23-valent vaccine1 08/04/13 Given Hx influenza vaccine-unspecified2 07/30/12 Given tetanus-diphtheria toxoids 01/08/11 Given 1Result Comment: pneumovax 23 [cvx33]. Migrated from OBS VIS: Pneumovax 23: 05/03/09 ; Data migrated from [employer] on 08/30/2015. 2Result Comment: historical. Migrated from OBS ; Data migrated from [employer] on 08/30/2015. Procedures Procedure Date Related Diagnosis Body Site Status Glaucoma screening 02/26/14 Completed Procedure1 08/14/13 Completed Colonoscopy 03/20/12 Completed Bone density scan2 Completed Mammogram - screening3 Completed Procedure4 Completed 1right leg closed reduction 81397 3about 2 years ago 4right breast surgery Social History Social History Type Response Alcohol Never Smoking Status Never smoker; Type: Cigars; Exposure to Tobacco Smoke None; Cigarette Smoking Last 365 Days No; Reg Smoking Cessation Counseling No entered on: 09/30/17 Assessment and Plan No data available for this section
--- OUTSIDE RECORDS SUMMARY | 2019-04-06 08:07 | XMS REPORT | Summary of Care ---
Author Author [facility] Primary Care [facility] Organization [facility] Address Unknown Phone Unavailable Encounter HQ Concha_jesse(FIN) [id number] Date(s): 09/19/17 - 09/19/17 [facility] [address], [address] [place], [place] [address]- [phone] Attending Physician: Cassi Syed MD Vital Signs [...] Resolved 10 Hyperlipidemia(Confi Resolved rmed) Cataract(Confirmed) Active Zwbnqafgipilzqwy09 12/01/13 Resolved Hyperlipidemia, Active mixed(Confirmed) Neurologic disorder Active associated with diabetes jorejgtp22 Occult blood Active positive stool(Confirmed) Uvlvcfykdg62 07/01/14 Active Osteoporosis(Confirm Active ed) Annual physical Active exam(Confirmed) Pelvic Active mass(Confirmed) Peripheral edema14 01/26/13 Active Physical examination Resolved lpkejfsqx78 Prediabetes(Confirme Active d) Preoperative Active clearance(Confirmed) Low serum vitamin Active B12(Confirmed) Urinary 01/26/13 Active fjrtdriokfxe23 1Data migrated from [employer] on 02/12/15. 2Data migrated from [employer] on 12/25/14. 3Data migrated from [employer] on 7/17/15. 4Data migrated from [employer] on 12/25/14. [...] from [employer] on 08/30/2015. 2Result Comment: historical. Migrated from OBS ; Data migrated from [employer] on 08/30/2015. Procedures Procedure Date Related Diagnosis Body Site Status Glaucoma screening 02/26/14 Completed Procedure1 08/14/13 Completed Colonoscopy 03/20/12 Completed Bone density scan2 Completed Mammogram - screening3 Completed Procedure4 Completed 1right leg closed reduction 15887 3about 2 years ago 4right breast surgery Social History Social History Type Response Alcohol Never Smoking Status Never smoker; Type: Cigars; Exposure to Tobacco Smoke None; Cigarette Smoking Last 365 Days No; Reg Smoking Cessation Counseling No entered on: 09/30/17 Assessment and Plan No data available for this section
--- OUTSIDE RECORDS SUMMARY | 2019-04-06 08:07 | XMS REPORT | Summary of Care ---
Author Author [facility] Primary [facility] Organization [facility] Address Unknown Phone Unavailable Encounter HQ Delilah(FIN) [id number] Date(s): 07/14/18 - 07/14/18 [facility] [address] [address]- Discharge Disposition: Home or Self Care Attending Physician: Cassi Syed MD Vital Signs Most recent to 1 oldest [Reference Range]: Height 154.94 cm (07/14/18 1:24 PM) Temperature Oral 97.0 DegF [96.4-99.1 DegF] (07/14/18 1:24 PM) Blood Pressure 135/62 mmHg [90-140/60-90 mmHg] (07/14/18 1:24 PM) Respiratory Rate 16 BRMIN [14-20 BRMIN] (07/14/18 1:24 PM) Peripheral Pulse 53 bpm Rate [60-100 bpm] *LOW* (07/14/18 1:24 PM) Weight 65 kg (07/14/18 1:24 PM) Body Mass Index 27.08 m2 (07/14/18 1:24 PM) Problem List Condition Effective Dates Status [...] Resolved 10 Hyperlipidemia(Confi Resolved rmed) Cataract(Confirmed) Active Pddqtqcpgodmkowf93 12/01/13 Resolved Hyperlipidemia, Active mixed(Confirmed) Cervical Active pain(Confirmed) Neurologic disorder Active associated with diabetes jllxraoy70 Occult blood Active positive stool(Confirmed) Gcmvgzespm02 07/01/14 Active Osteoporosis(Confirm Active ed) Annual physical Active exam(Confirmed) Pelvic Active mass(Confirmed) Peripheral edema14 01/26/13 Active Physical examination Resolved zvhcnoiko94 Prediabetes(Confirme Active d) Preoperative Active clearance(Confirmed) Red eye(Confirmed) Active Screen for colon Active cancer(Confirmed) Low serum vitamin Active B12(Confirmed) Tinea Active pedis(Confirmed) Urge Active incontinence(Confirm ed) Urinary 01/26/13 Active kjyekztptkkx28 1Data migrated from [employer] on 02/12/15. [...] documented as AMLODIPINE BESYLATE. leg swelling Medications LamISIL AT [employer] 1% topical cream 1 appl, TOP, BID, X 30 day, # 15 gm, 0 Refill(s), Pharmacy: [facility] [id number] Start Date: 07/14/18 Stop Date: 08/13/18 Status: Completed Results No data available for [...] Pneumovax 23: 05/03/09 ; Data migrated from [employer] on 08/30/2015. 3Result Comment: historical. Migrated from OBS ; Data migrated from [employer] on 08/30/2015. Procedures Procedure Date Related Diagnosis Body Site Status Glaucoma screening 02/26/14 Completed Procedure1 08/14/13 Completed Colonoscopy 03/20/12 Completed Bone density scan2 Completed Cataract surgery3 Completed Mammogram - screening4 Completed Procedure5 Completed 1right leg closed reduction 20674 3both 4about 2 years ago 5right breast surgery Social History Social History Type Response Alcohol Never Smoking Status Never smoker; Type: Cigars; Exposure to Tobacco Smoke None; Cigarette Smoking Last 365 Days No; Reg Smoking Cessation Counseling No entered on: 01/19/19 Assessment and Plan No data available for this section
--- OUTSIDE RECORDS SUMMARY | 2019-04-06 08:07 | XMS REPORT | Summary of Care ---
Author Author [facility] Primary Care [facility] Organization [facility] Address Unknown Phone Unavailable Encounter HQ Delilah(FIN) [id number] Date(s): 01/19/19 - 01/19/19 [facility] [address] [address]- Discharge Disposition: Home or Self Care Attending Physician: Cassi Syed MD Vital Signs Most recent to 1 oldest [Reference Range]: Height 154.94 cm (01/19/19 2:22 PM) Temperature Oral 97.8 DegF [96.4-99.1 DegF] (01/19/19 2:22 PM) Blood Pressure 142/59 mmHg [90-140/60-90 mmHg] *HI* (01/19/19 2:22 PM) Respiratory Rate 18 BRMIN [14-20 BRMIN] (01/19/19 2:22 PM) Peripheral Pulse 49 bpm Rate [60-100 bpm] *LOW* (01/19/19 2:22 PM) Weight 62.273 kg (01/19/19 2:22 PM) Body Mass Index 25.94 m2 (01/19/19 2:22 PM) Problem List Condition Effective Dates Status [...] Resolved 10 Hyperlipidemia(Confi Resolved rmed) Cataract(Confirmed) Active Bpqjeirlrnerlpcg62 12/01/13 Resolved Hyperlipidemia, Active mixed(Confirmed) Cervical Active pain(Confirmed) Neurologic disorder Active associated with diabetes Occult blood Active positive stool(Confirmed) Xssxwrrtmv78 07/01/14 Active Osteoporosis(Confirm Active ed) Annual physical Active exam(Confirmed) Pelvic Active mass(Confirmed) Peripheral edema14 01/26/13 Active Physical examination Resolved ieyhfytoa09 Prediabetes(Confirme Active d) Preoperative Active clearance(Confirmed) Red eye(Confirmed) Active Screen for colon Active cancer(Confirmed) Low serum vitamin Active B12(Confirmed) Tinea Active pedis(Confirmed) Urge Active incontinence(Confirm ed) Urinary 01/26/13 Active eplbkaizghxs68 1Data migrated from [employer] on 02/12/15. [...] documented as AMLODIPINE BESYLATE. leg swelling Medications Voltaren Topical 1% topical gel 4 gm=1 appl, TOP, BID, PRN Apply to affected area, # 100 gm, 1 Refill(s), Pharma cy: [id number] Start Date: 01/19/19 Status: Ordered Results No data available for [...] Pneumovax 23: 05/03/09 ; Data migrated from [employer] on 08/30/2015. 3Result Comment: historical. Migrated from OBS ; Data migrated from [employer] on 08/30/2015. Procedures Procedure Date Related Diagnosis Body Site Status Glaucoma screening 02/26/14 Completed Procedure1 08/14/13 Completed Colonoscopy 03/20/12 Completed Bone density scan2 Completed Cataract surgery3 Completed Mammogram - screening4 Completed Procedure5 Completed 1right leg closed reduction 83410 3both 4about 2 years ago 5right breast surgery Social History Social History Type Response Alcohol Never Smoking Status Never smoker; Type: Cigars; Exposure to Tobacco Smoke None; Cigarette Smoking Last 365 Days No; Reg Smoking Cessation Counseling No entered on: 01/19/19 Assessment and Plan No data available for this section
--- OUTSIDE RECORDS SUMMARY | 2019-04-06 08:07 | XMS REPORT | Summary of Care ---
Author Author [facility] Primary Care [facility] Organization [facility] Address Unknown Phone Unavailable Encounter HQ Delilah(FIN) [id number] Date(s): 01/09/18 - 01/09/18 [facility] [address] [facility] [address], [address] [place] [address]- [phone] Discharge Disposition: Home or Self Care Attending Physician: Cassi Syed MD Vital Signs Most recent to 1 oldest [Reference Range]: Height 160.02 cm (01/09/18 2:47 PM) Temperature Oral 97.6 DegF [96.4-99.1 DegF] (01/09/18 2:47 PM) Blood Pressure 111/60 mmHg [90-140/60-90 mmHg] (01/09/18 2:47 PM) Peripheral Pulse 62 bpm Rate [60-100 bpm] (01/09/18 2:47 PM) Weight 65.114 kg (01/09/18 2:47 PM) Body Mass Index 25.43 m2 (01/09/18 2:47 PM) Problem List Condition Effective Dates Status [...] Resolved 10 Hyperlipidemia(Confi Resolved rmed) Cataract(Confirmed) Active Qiyhinlnejwktxpz37 12/01/13 Resolved Hyperlipidemia, Active mixed(Confirmed) Neurologic disorder Active associated with diabetes azwifrav32 Occult blood Active positive stool(Confirmed) Nmxnovxjbn59 07/01/14 Active Osteoporosis(Confirm Active ed) Annual physical Active exam(Confirmed) Pelvic Active mass(Confirmed) Peripheral edema14 01/26/13 Active Physical examination Resolved swlrzooat48 Prediabetes(Confirme Active d) Preoperative Active clearance(Confirmed) Low serum vitamin Active B12(Confirmed) Urinary 01/26/13 Active ribhlwsnukns81 1Data migrated from [employer] on 02/12/15. [...] documented as AMLODIPINE BESYLATE. leg swelling Medications simvastatin 5 mg oral tablet 5 mg=1 tab, PO, Bedtime, # 90 tab, 1 Refill(s), Pharmacy: [facility] [id number] Start Date: 01/09/18 Stop Date: 07/08/18 Status: Ordered Results No data available for this section Immunizations Given and Recorded Vaccine Date Status Refusal Reason influenza virus vaccine, inactivated 06/13/17 Given pneumococcal 23-valent vaccine1 08/04/13 Given Hx influenza vaccine-unspecified2 07/30/12 Given tetanus-diphtheria toxoids 01/08/11 Given 1Result Comment: pneumovax 23 [cvx33]. Migrated from OBS VIS: Pneumovax 23: 05/03/09 ; Data migrated from [employer] on 08/30/2015. 2Result Comment: historical. Migrated from OBS ; Data migrated from [employer] on 08/30/2015. Procedures Procedure Date Related Diagnosis Body Site Status Glaucoma screening 02/26/14 Completed Procedure1 08/14/13 Completed Colonoscopy 03/20/12 Completed Bone density scan2 Completed Mammogram - screening3 Completed Procedure4 Completed 1right leg closed reduction 45392 3about 2 years ago 4right breast surgery Social History Social History Type Response Alcohol Never Smoking Status Never smoker; Type: Cigars; Exposure to Tobacco Smoke None; Cigarette Smoking Last 365 Days No; Reg Smoking Cessation Counseling No entered on: 01/09/18 Assessment and Plan No data available for this section
--- OUTSIDE RECORDS SUMMARY | 2019-04-06 08:07 | XMS REPORT | Summary of Care ---
Author Author [facility] Primary [facility] Organization [facility] Address Unknown Phone Unavailable Encounter AURELIO Mazariegos(FIN) [id number] Date(s): 10/17/18 - 10/17/18 [facility] [address] [address]- Discharge Disposition: Home or Self Care Attending Physician: Cassi Syed MD Vital Signs Most recent to 1 oldest [Reference Range]: Height 154.94 cm (10/17/18 8:39 AM) Temperature Oral 97.3 DegF [96.4-99.1 DegF] (10/17/18 8:39 AM) Blood Pressure 194/69 mmHg [90-140/60-90 mmHg] *HI* (10/17/18 8:39 AM) Respiratory Rate 14 BRMIN [14-20 BRMIN] (10/17/18 8:39 AM) Peripheral Pulse 53 bpm Rate [60-100 bpm] *LOW* (10/17/18 8:39 AM) Weight 64.091 kg (10/17/18 8:39 AM) Body Mass Index 26.7 m2 (10/17/18 8:39 AM) Problem List Condition Effective Dates Status Health [...] Resolved 10 Hyperlipidemia(Confi Resolved rmed) Cataract(Confirmed) Active Krnqfrsudjbdbozx25 12/01/13 Resolved Hyperlipidemia, Active mixed(Confirmed) Neurologic disorder Active associated with diabetes Occult blood Active positive stool(Confirmed) Ickkjygugv61 07/01/14 Active Osteoporosis(Confirm Active ed) Annual physical Active exam(Confirmed) Pelvic Active mass(Confirmed) Peripheral edema14 01/26/13 Active Physical examination Resolved qnrpysnjy54 Prediabetes(Confirme Active d) Preoperative Active clearance(Confirmed) Red eye(Confirmed) Active Screen for colon Active cancer(Confirmed) Low serum vitamin Active B12(Confirmed) Tinea Active pedis(Confirmed) Urge Active incontinence(Confirm ed) Urinary 01/26/13 Active kvakiazexlyu56 1Data migrated from [employer] on 02/12/15. [...] documented as AMLODIPINE BESYLATE. leg swelling Medications alendronate 35 mg oral tablet 35 mg=1 tab, PO, Q7D, # 12 tab, 1 Refill(s), Pharmacy: [id number] Start Date: 10/17/18 Stop Date: 04/03/19 Status: Ordered Results No data available for [...] Pneumovax 23: 05/03/09 ; Data migrated from [employer] on 08/30/2015. 3Result Comment: historical. Migrated from OBS ; Data migrated from [employer] on 08/30/2015. Procedures Procedure Date Related Diagnosis Body Site Status Glaucoma screening 02/26/14 Completed Procedure1 08/14/13 Completed Colonoscopy 03/20/12 Completed Bone density scan2 Completed Cataract surgery3 Completed Mammogram - screening4 Completed Procedure5 Completed 1right leg closed reduction 55139 3both 4about 2 years ago 5right breast surgery Social History Social History Type Response Alcohol Never Smoking Status Never smoker; Type: Cigars; Exposure to Tobacco Smoke None; Cigarette Smoking Last 365 Days No; Reg Smoking Cessation Counseling No entered on: 10/17/18 Assessment and Plan No data available for this section
--- OUTSIDE RECORDS SUMMARY | 2019-04-06 08:07 | XMS REPORT | Summary of Care ---
Author Author [facility] Primary Care [facility] Organization [facility] Address Unknown Phone Unavailable Encounter HQ Concha_jesse(FIN) [id number] Date(s): 09/19/17 - 09/19/17 [facility] [address] [facility], [address] [place], [place] [address]- [phone] Attending Physician: Cassi Syed MD Vital Signs [...] Resolved 10 Hyperlipidemia(Confi Resolved rmed) Cataract(Confirmed) Active Lnnfqjynujelzrfm02 12/01/13 Resolved Hyperlipidemia, Active mixed(Confirmed) Neurologic disorder Active associated with diabetes Occult blood Active positive stool(Confirmed) Eiruphcmte59 07/01/14 Active Osteoporosis(Confirm Active ed) Annual physical Active exam(Confirmed) Pelvic Active mass(Confirmed) Peripheral edema14 01/26/13 Active Physical examination Resolved uwejzncnd89 Prediabetes(Confirme Active d) Preoperative Active clearance(Confirmed) Low serum vitamin Active B12(Confirmed) Urinary 01/26/13 Active hmlwgvcidwsf24 1Data migrated from [employer] on 02/12/15. [...] Completed Procedure4 Completed 1right leg closed reduction 52776 3about 2 years ago 4right breast surgery Social History Social History Type Response Alcohol Never Smoking Status Never smoker; Type: Cigars; Exposure to Tobacco Smoke None; Cigarette Smoking Last 365 Days No; Reg Smoking Cessation Counseling No entered on: 09/30/17 Assessment and Plan No data available for this section
--- OUTSIDE RECORDS SUMMARY | 2019-04-06 08:07 | XMS REPORT | Summary of Care ---
Author Author [facility] Primary Care [facility] Organization [facility] Address Unknown Phone Unavailable Encounter HQ Concha_jesse(FIN) [id number] Date(s): 11/21/18 - 11/22/18 [facility] [address] [address] [phone] Vital Signs No data available for this [...] Resolved 10 Hyperlipidemia(Confi Resolved rmed) Cataract(Confirmed) Active Juzohprtpgxvhzsy14 12/01/13 Resolved Hyperlipidemia, Active mixed(Confirmed) Neurologic disorder Active associated with diabetes mpxyqjoo75 Occult blood Active positive stool(Confirmed) Bkveajmrnh60 07/01/14 Active Osteoporosis(Confirm Active ed) Annual physical Active exam(Confirmed) Pelvic Active mass(Confirmed) Peripheral edema14 01/26/13 Active Physical examination Resolved Prediabetes(Confirme Active d) Preoperative Active clearance(Confirmed) Red eye(Confirmed) Active Screen for colon Active cancer(Confirmed) Low serum vitamin Active B12(Confirmed) Tinea Active pedis(Confirmed) Urge Active incontinence(Confirm ed) Urinary 01/26/13 Active chhqvnthedam53 1Data migrated from [facility] on 02/12/15. 2Data migrated from [employer] [...] Data migrated from [employer] on 08/30/2015. 3Result Comment: historical. Migrated from OBS ; Data migrated from [employer] on 08/30/2015. Procedures Procedure Date Related Diagnosis Body Site Status Glaucoma screening 02/26/14 Completed Procedure1 08/14/13 Completed Colonoscopy 03/20/12 Completed Bone density scan2 Completed Cataract surgery3 Completed Mammogram - screening4 Completed Procedure5 Completed 1right leg closed reduction 3both 4about 2 years ago 5right breast surgery Social History Social History Type Response Alcohol Never Smoking Status Never smoker; Type: Cigars; Exposure to Tobacco Smoke None; Cigarette Smoking Last 365 Days No; Reg Smoking Cessation Counseling No entered on: 10/17/18 Assessment and Plan No data available for this section
--- OUTSIDE RECORDS SUMMARY | 2019-04-06 08:07 | XMS REPORT | Summary of Care ---
Author Author [facility] Primary [facility] Organization [facility] Address Unknown Phone Unavailable Encounter HQ Bennyr_jesse(FIN) [id number] Date(s): 06/13/17 - 06/13/17 [facility] [address] [facility], [address] [place] [address]- [phone] Discharge Disposition: Home or Self Care Attending Physician: Cassi Syed MD Vital Signs Most recent to 1 oldest [Reference Range]: Height 160.02 cm (06/13/17 2:55 PM) Temperature Oral 97.8 DegF [96.4-99.1 DegF] (06/13/17 2:55 PM) Blood Pressure 141/60 mmHg [90-140/60-90 mmHg] *HI* (06/13/17 2:55 PM) Respiratory Rate 14 BRMIN [14-20 BRMIN] (06/13/17 2:55 PM) Peripheral Pulse 99 bpm Rate [60-100 bpm] (06/13/17 2:55 PM) Weight 60.455 kg (06/13/17 2:55 PM) Body Mass Index 23.61 m2 (06/13/17 2:55 PM) Problem List Condition Effective Dates Status [...] Resolved 10 Hyperlipidemia(Confi Resolved rmed) Cataract(Confirmed) Active Wcavidxsjyidxetj17 12/01/13 Resolved Hyperlipidemia, Active mixed(Confirmed) Neurologic disorder Active associated with diabetes rirovmeq02 Occult blood Active positive stool(Confirmed) Uxuiinzgkz70 07/01/14 Active Osteoporosis(Confirm Active ed) Annual physical Active exam(Confirmed) Pelvic Active mass(Confirmed) Peripheral edema14 01/26/13 Active Physical examination Resolved steyasvbr57 Preoperative Active clearance(Confirmed) Low serum vitamin Active B12(Confirmed) Urinary 01/26/13 Active xjkhjkvadsqv62 1Data migrated from [employer] on 02/12/15. [...] documented as AMLODIPINE BESYLATE. leg swelling Medications Vitamin B12 1000 mcg oral tablet 1,000 microgram=1 tab, PO, Daily, # 90 tab, 1 Refill(s), Pharmacy: [facility] [id number] Start Date: 06/13/17 Stop Date: 12/10/17 Status: Ordered Results No data available for this section Immunizations Given and Recorded Vaccine Date Status Refusal Reason influenza virus vaccine, inactivated 06/13/17 Given pneumococcal 23-valent vaccine1 08/04/13 Given Hx influenza vaccine-unspecified2 07/30/12 Given tetanus-diphtheria toxoids 01/08/11 Given 1Result Comment: pneumovax 23 [cvx33]. Migrated from OBS VIS: Pneumovax 23: 05/03/09 ; Data migrated from [employer] on 08/30/2015. 2Result Comment: historical. Migrated from OBS ; Data migrated from [employer] on 08/30/2015. Procedures Procedure Date Related Diagnosis Body Site Glaucoma screening 02/26/14 Procedure1 08/14/13 Colonoscopy 03/20/12 Bone density scan2 Mammogram - screening3 Procedure4 1right leg closed reduction 03733 3about 2 years ago 4right breast surgery Social History Social History Type Response Alcohol Never Smoking Status Never smoker; Type: Cigars; Exposure to Tobacco Smoke None; Cigarette Smoking Last 365 Days No; Reg Smoking Cessation Counseling No Assessment and Plan No data available for this section
[2019-04-06 11:51] VITALS: BP 151/68
--- NOTE | 2019-04-06 18:04 | Operative Report ---
DATE OF PROCEDURE: 04/06/2019 SURGEON: Sadi Kimball MD PROCEDURE: Esophagogastroduodenoscopy with biopsies and flexible sigmoidoscopy. INDICATIONS FOR EGD: Acid reflux. INDICATIONS FOR COLONOSCOPY: Colorectal cancer screening, anemia. MEDICATIONS: The patient was done under MAC, please see anesthesiologist's note. PROCEDURE IN DETAIL: With the patient in left lateral decubitus position, a flexible fiberoptic Olympus gastroscope was introduced into the esophagus under direct visualization without any difficulty. There was some patchy erythema noted in distal esophagus. The scope was then advanced with ease into the stomach. Mucosa overlying the antrum and the body revealed some diffuse erythema and moderate edema. Biopsies were obtained and sent to stain for H pylori. Pylorus was of normal contour and shape, it was intubated with ease and the scope was advanced all the way to the second portion of the duodenum. The scope was then withdrawn slowly and mucosa overlying the proximal second portion appeared to be within normal limits. Two minute ulcers were noted in the duodenal bulb without active bleeding or stigmata of recent hemorrhage. The scope was then withdrawn back into the stomach and retroflexed and mucosa overlying the fundus and cardia appeared to be within normal limits. The scope was then straightened out, it was subsequently withdrawn. The patient tolerated the procedure well. IMPRESSION: 1. Distal esophagitis, mild. 2. Gastritis, biopsied. Biopsies sent to stain for Helicobacter pylori. 3. Duodenal ulcers, bulb, minute without active bleeding or stigmata of recent hemorrhage. PLAN: Follow up histology. Increase Nexium to 40 mg one p.o. a.c. b.i.d. PROCEDURE IN DETAIL: The patient was then turned around after adequate lubrication of the anal canal, a flexible fiberoptic Olympus colonoscope was inserted into the rectum with ease and advanced to approximately 30 cm from the anal verge, could not advance any further secondary to the presence of a large amount of retained fecal material. The scope was then withdrawn slowly, whatever was visualized the mucosa overlying the distal sigmoid and the rectum appeared to be within normal limits. The scope was then retroflexed into the distal rectum and small internal hemorrhoids were noted, none of which was actively bleeding. The scope was then straightened out, it was subsequently withdrawn. The patient tolerated the procedure well. IMPRESSION: 1. A flexible sigmoidoscopy to 30 cm from the anal verge. Could not advance any further secondary to poor prep. 2. Internal hemorrhoids, none actively bleeding. PLAN: The patient will need a repeat colonoscopy after a better prep. MD ANN Garcia/MADI /[id number] cc: João Rodriguez MD
== END | disposition home or self-care (01) ==
LOC: OR 07:57
PROVIDERS: ATTEND Internal Medicine Gastroenterology
DX: K21.9 Gastro-esophageal reflux disease without esophagitis (principal); D64.9 Anemia, unspecified; R19.7 Diarrhea, unspecified; R14.0 Abdominal distension (gaseous); Z01.810 Encounter for preprocedural cardiovascular examination; Z01.812 Encounter for preprocedural laboratory examination; I10 Essential (primary) hypertension; K20.9 Esophagitis, unspecified; K29.70 Gastritis, unspecified, without bleeding; K26.9 Duodenal ulcer, unspecified as acute or chronic, without hemorrhage or perforation; K64.8 Other hemorrhoids; K31.9 Disease of stomach and duodenum, unspecified; Z53.8 Procedure and treatment not carried out for other reasons
CPT/HCPCS: 36415; 43239; 45330; 85025; 93005; J2704; J3010

== ENCOUNTER → 2019-04-08 | Day surgery (SDC) | payer MEDICARE, OTHER ==
[~2019-04-08] MED LIST changes: -FENTANYL CITRATE/PF 100MCG/2 ML INJ ONE
--- OUTSIDE RECORDS SUMMARY | 2019-04-08 11:41 | XMS REPORT | Continuity of Care Document ---
Author Author [employer] 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 DX: PELVIC MASS Active 11/16/2016 [facility] DX: PELVIC MASS . Active 11/16/2016 [facility] Discharge Diagnosis: Contusion of face 04/13/2015 04/16/2015 [facility] Discharge Diagnosis: Closed head injury without loss of consciousness 04/13/2015 04/16/2015 [facility] Discharge Diagnosis: Knee sprain 04/13/2015 04/16/2015 [facility] FALL/EYE INJURY Active 04/13/2015 [facility] Gastroesophageal reflux disease (disorder) Active 07/01/2014 Problem 02/01/2019 Data migrated from [employer] on 12/25/14. [facility] Osteopenia (disorder) Active 07/01/2014 Problem 02/01/2019 Data migrated from [employer] on 12/25/14. [facility] Chronic kidney disease stage 1 (disorder) Active 12/01/2013 Problem 02/01/2019 Data migrated from [employer] on 12/25/14. [facility] Diabetic renal disease (disorder) Active 12/01/2013 Problem 02/01/2019 Data migrated from [employer] on 12/25/14. [facility] Microalbuminuria (finding) Resolved 12/01/2013 Problem 02/01/2019 Data migrated from [employer] on 12/25/14. [facility] FALL Active 08/08/2013 [facility] Acute cystitis (disorder) Resolved 08/04/2013 Problem 02/01/2019 Data migrated from [employer] on 02/12/15. [facility] Diabetic polyneuropathy (disorder) Active 01/26/2013 Problem 02/01/2019 Data migrated from [employer] on 12/25/14. [facility] Hypercholesterolemia (disorder) Resolved 01/26/2013 Problem 02/01/2019 Data migrated from [employer] on 12/25/14. [facility] Peripheral edema (disorder) Active 01/26/2013 Problem 02/01/2019 Data migrated from [employer] on 12/25/14. [facility] Urinary incontinence (finding) Active 01/26/2013 Problem 02/01/2019 Data migrated from [employer] on 12/25/14. [facility] FLANK PAIN Active 11/18/2011 [facility] Acute urinary tract infection (disorder) Active Problem 02/01/2019 [facility] Benign essential hypertension (disorder) Active Problem 02/01/2019 [facility] Child examination finding (finding) Resolved Problem 02/01/2019 Data migrated from [employer] on 02/11/15. 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 Diabetes mellitus (disorder) Resolved Problem 02/01/2019 [facility] Evaluation finding (finding) Resolved Problem 02/01/2019 Data migrated from [employer] on 02/11/15. [facility] Gynecologic examination (procedure) Resolved Problem 02/01/2019 Data migrated from [employer] on 02/11/15. [facility] Hypertensive disorder, systemic arterial (disorder) Resolved Problem 02/01/2019 [facility] Hyperlipidemia (disorder) Resolved Problem 02/01/2019 [facility] Cataract (disorder) Active Problem 02/01/2019 [facility] Mixed hyperlipidemia (disorder) Active Problem 02/01/2019 [facility] Neurologic disorder associated with diabetes mellitus (disorder) Active Problem 02/01/2019 Data migrated from [employer] on 12/25/14. [facility] Occult blood in stools (disorder) Active Problem 02/01/2019 [facility] Osteoporosis (disorder) Active Problem 02/01/2019 [facility] Patient encounter status (finding) Active Problem 02/01/2019 [facility] Pelvic mass (disorder) Active Problem 02/01/2019 [facility] Physical examination procedure (procedure) Resolved Problem 02/01/2019 Data migrated from [employer] on 02/11/15. [facility] Preoperative state (finding) Active Problem 02/01/2019 [facility] Serum vitamin B12 low (finding) Active Problem 02/01/2019 [facility] Prediabetes (finding) Active Problem 02/01/2019 [facility] Breast neoplasm screening (procedure) Active Problem 02/01/2019 [facility] Cobalamin deficiency (disorder) Active Problem 02/01/2019 [facility] Conjunctival hemorrhage (disorder) Active Problem 02/01/2019 [facility] Decreased vitamin D (finding) Active Problem 02/01/2019 [facility] Red eye (disorder) Active Problem 02/01/2019 [facility] Screening status (finding) Active Problem 02/01/2019 [facility] Tinea pedis (disorder) Active Problem 02/01/2019 [facility] Urge incontinence of urine (finding) Active Problem 02/01/2019 [facility] Neck pain (finding) Active Problem 02/01/2019 [facility] RADICULOPATHY Active [facility] INTRA-ABD AND PELVIC SWELLING, MASS AND Active [facility] AGE-RELATED OSTEOPOROSIS W/O CURRENT PAT Active [facility] Medications Medication Details Route Status Patient Instructions Ordering Provider Order Date Source Diclofenac Sodium 0.01 MG/MG Topical Gel [Voltaren] 4 gm=1 appl, TOP, BID, PRN Apply to affected area, # 100 gm, 1 Refill(s), Pharmacy: [facility] [id number] Active 01/19/2019 [facility] losartan 100 mg oral tablet =1 tab, PO, Daily, # 90 tab, DISCONTINUE VALSARTAN, Pharmacy: [facility] [id number] Active 12/10/2018 [facility] carvedilol 12.5 mg oral tablet =1 tab, PO, BID, # 180 tab, Pharmacy: [facility] [id number] Active 12/10/2018 [facility] Alendronic acid 35 MG Oral Tablet 35 mg=1 tab, PO, Q7D, # 12 tab, 1 Refill(s), Pharmacy: [facility] [id number] Active 10/17/2018 [facility] Terbinafine hydrochloride 10 MG/ML Topical Cream [Lamisil] 1 appl, TOP, BID, X 30 day, # 15 gm, 0 Refill(s), Pharmacy: [facility] [id number] No Longer Active 07/14/2018 [facility] losartan 100 mg oral tablet See Instructions, TAKE 1 TABLET BY MOUTH DAILY FOR 90 DAYS DISCONTINUE VALSARTAN, # 90 tab, 1 Refill(s), Pharmacy: [facility] [id number] No Longer Active 06/11/2018 [facility] Sterile Lubricating Tears ophthalmic solution 1 drp, RIGHT EYE, BID, # 5 mL, 0 Refill(s), [facility] [id number] No Longer Active 06/05/2018 [facility] losartan 100 mg oral tablet See Instructions, # 90 tab, TAKE 1 TABLET BY MOUTH DAILY DISCONTINUE VALSARTAN, 06/11/18 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, [facility] [id number] No Longer Active 03/18/2018 [facility] losartan 100 mg oral tablet 100 mg=1 tab, PO, Daily, discontinue valsartan, # 30 tab, 0 Refill(s), [facility] [id number] Inactive 03/17/2018 [facility] simvastatin 5 mg oral tablet 5 mg=1 tab, PO, Bedtime, # 90 tab, 1 Refill(s), [facility] [id number] Active 01/09/2018 [facility] Furosemide 20 MG Oral Tablet See Instructions, # 90 tab, Refill(s) 1, TAKE 1 TABLET BY MOUTH EVERY DAY NEEDED FOR EDEMA, [facility] [id number] Active 10/02/2017 [facility] simvastatin 20 mg oral tablet 20 mg=1 tab, PO, Bedtime, # 90 tab, 1 Refill(s), [facility] [id number] Active 09/30/2017 [facility] Furosemide 20 MG Oral Tablet 20 mg=1 tab, PO, PRN, PRN Edema, # 60 tab, 1 Refill(s), Pharmacy: [facility] [id number] No Longer Active 09/30/2017 [facility] NIFEdipine 30 mg oral tablet, extended release 30 mg=1 tab, PO, Daily, # 90 tab, 1 Refill(s), [facility] [id number] Active 09/30/2017 [facility] Vitamin B12 1000 mcg oral tablet 1,000 microgram=1 tab, PO, Daily, # 90 tab, 1 Refill(s), Pharmacy: [facility] [id number] Active 06/13/2017 [facility] Clonidine Hydrochloride 0.1 MG Oral Tablet 0.1 mg, Route: PO, Drug form: TAB, ONCE, Dosing Weight 90.909, kg, Priority: STAT, Start date: 04/13/15 16:23:00, Stop date: 04/13/15 16:23:00 Inactive 04/13/2015 [facility] Acetaminophen 325 MG / Hydrocodone Bitartrate 5 MG Oral Tablet 1 tab, Route: PO, Drug Form: TAB, Dosing Weight 90.909, kg, ONCE, STAT, Start date: 04/13/15 15:58:00, Stop date: 04/13/15 15:58:00 Inactive 04/13/2015 [facility] acetaminophen-hydrocodone 325 mg-5 mg oral tablet 1 tab, PO, Q4H, for pain, # 12 tab, 0 Refill(s) Active Garcia 08/08/2013 [facility] acetaminophen-hydrocodone 325 mg-10 mg oral tablet 1 tab, Route: PO, Drug Form: TAB, Dosing Weight 72.727, kg, ONCE, STAT, Start date: 08/08/13 2:26:00, Stop date: 08/08/13 2:26:00Do not exceed 4gm/day of acetaminophen. (Same as: Boncarbo 325/10) Inactive Garcia 08/08/2013 [facility] Bactrim DS oral tablet 1 tab, PO, BID, 20 tab, Substitution Allowed, Maintenance PO Active Sylvester 11/19/2011 [facility] magnesium citrate 8.85% oral liquid 150 ml, PO, ONCE, 300 ml, Substitution Allowed, Maintenance, LIQ PO Active Sylvester 11/19/2011 [facility] Saline Flush 0.9% 5 ml, Route: IVP, Drug Form: INJ, PRN, PRN Line Flush, Start date: 11/18/11 21:01:00, Duration: 24 hr, Stop date: 11/19/11 21:00:00 IVP No Longer Active Justin 11/19/2011 [facility] Enablex 15 mg oral tablet, extended release 15 mg, 1 tab, PO, Daily, 30 tab, Substitution Allowed, ERTAB PO Active 11/19/2011 [facility] pantoprazole 40 mg oral enteric coated tablet 40 mg, 1 tab, PO, Daily, 30 tab, Substitution Allowed, ECTAB PO Active 11/19/2011 [facility] gabapentin 300 mg oral capsule 300 mg, 1 cap, PO, TID, 90 cap, Substitution Allowed PO Active 11/19/2011 [facility] hydrochlorothiazide 12.5 mg oral capsule 12.5 mg, 1 cap, PO, Daily, 30 cap, Substitution Allowed PO Active 11/19/2011 [facility] lisinopril 20 mg oral tablet 20 mg, 1 tab, PO, Daily, 30 tab, Substitution Allowed, TAB PO Active 11/19/2011 [facility] metoprolol 100 mg oral tablet, extended release 100 mg, 1 tab, PO, Daily, 30 tab, Substitution Allowed PO Active 11/19/2011 [facility] metFORmin 500 mg oral tablet 500 mg, 1 tab, PO, Before Dinner, 30 tab, Substitution Allowed PO Active 11/19/2011 [facility] tetanus-diphtheria toxoids adult intramuscular suspension 0.5 ml, Route: IM, ONCE, STAT, Start date: 01/08/11 22:02:00, Stop date: 01/08/11 22:02:00 Inactive Boester 01/09/2011 [facility] Allergies, Adverse Reactions, Alerts Substance Category Reaction Severity Reaction type Status Date Reported Comments Source amLODIPine<sup>1</sup> Assertion Drug allergy Active 07/07/2013 Data migrated from [employer] on 11/25/14. Originally documented as AMLODIPINE BESYLATE. [...] Pneumovax 23: 05/03/09 ; Data migrated from [employer] on 08/30/2015. [facility] pneumococcal 23-valent vaccine<sup>2</sup> 08/04/2013 Right Deltoid completed GE Result Comment: pneumovax 23 [[id number]]. Migrated from OBS VIS: Pneumovax 23: 05/03/09 ; Data migrated from [employer] on 08/30/2015. [facility] Hx influenza vaccine-unspecified<sup>2</sup> 07/30/2012 completed GE Result Comment: historical. Migrated from OBS ; Data migrated from [employer] on 08/30/2015. [facility] Hx influenza vaccine-unspecified<sup>1</sup> 07/30/2012 completed GE Result Comment: historical. Migrated from OBS ; Data migrated from [employer] on 08/30/2015. [facility] Hx influenza vaccine-unspecified<sup>3</sup> 07/30/2012 completed GE Result Comment: historical. Migrated from OBS ; Data migrated from [employer] on 08/30/2015. [facility] tetanus-diphtheria toxoids 01/09/2011 Left Deltoid completed [facility] tetanus-diphtheria toxoids 01/09/2011 completed [facility] tetanus-diphtheria toxoids 01/09/2011 Left Deltoid completed [facility] Results Order Name Results Value Reference Range Date Interpretation Comments Source URINALYSIS UA WBC 6-10 /HPF *ABN* (11/18/2011 22:00:00) None Seen 11/19/2011 ABN [facility] URINALYSIS UA RBC 0-2 /HPF (11/18/2011 22:00:00) 0 - 2 11/19/2011 Normal [facility] URINALYSIS UA Bacteria Many /HPF (11/18/2011 22:00:00) None Seen 11/19/2011 Normal [facility] URINALYSIS UA Renal Epi 0-2 /LPF *ABN* (11/18/2011 22:00:00) 11/19/2011 ABN [facility] URINALYSIS Micro? Performed (11/18/2011 22:00:00) 11/19/2011 Normal [facility] URINALYSIS UA Sq Epi Rare /LPF (11/18/2011 22:00:00) Few 11/19/2011 Normal [facility] URINALYSIS UA Urobilinogen 0.2 0.1 - 1.0 11/19/2011 Normal [facility] URINALYSIS UA Nitrite Positive *ABN* (11/18/2011 22:00:00) Negative 11/19/2011 ABN [facility] URINALYSIS UA Leuk Est Large *ABN* (11/18/2011 22:00:00) Negative 11/19/2011 ABN [facility] URINALYSIS UA Bili Negative *NA* (11/18/2011 22:00:00) Negative 11/19/2011 NA [facility] URINALYSIS UA Blood Trace *ABN* (11/18/2011 22:00:00) Negative 11/19/2011 ABN [facility] URINALYSIS UA Protein Negative (11/18/2011 22:00:00) Negative 11/19/2011 Normal [facility] URINALYSIS UA Glucose Negative (11/18/2011 22:00:00) Negative 11/19/2011 Normal [facility] URINALYSIS UA Spec Grav 1.010 <=1.030 11/19/2011 Normal [facility] URINALYSIS UA pH 5.5 5.0 - 8.0 11/19/2011 Normal [facility] URINALYSIS UA Ketones Negative *NA* (11/18/2011 22:00:00) Negative 11/19/2011 NA [facility] URINALYSIS UA Color Yellow *NA* (11/18/2011 22:00:00) Yellow 11/19/2011 NA [facility] URINALYSIS UA Turbidity Clear (11/18/2011 22:00:00) Clear 11/19/2011 Normal [facility] CHEMISTRY Glucose Lvl 129 70 - 99 11/19/2011 HI <sup>1</sup>Interpretive Data: Adult reference range values reflect the clinical guidelines of the [place] [employer]. [facility] CHEMISTRY BUN 19 7 - 22 11/19/2011 Normal [facility] CHEMISTRY Creatinine Lvl 0.7 0.5 - 1.4 11/19/2011 Normal [facility] CHEMISTRY Sodium Lvl 136 135 - 145 11/19/2011 Normal [facility] CHEMISTRY Potassium Lvl 3.4 3.5 - 5.1 11/19/2011 LOW [facility] CHEMISTRY Chloride Lvl 99 95 - 109 11/19/2011 Normal [facility] CHEMISTRY CO2 26 24 - 32 11/19/2011 Normal [facility] CHEMISTRY Calcium Lvl 9.5 8.5 - 10.5 11/19/2011 Normal [facility] CHEMISTRY Albumin Lvl 3.7 3.5 - 5.0 11/19/2011 Normal [facility] CHEMISTRY Total Protein 7.9 6.4 - 8.4 11/19/2011 Normal [facility] CHEMISTRY ALT 20 0 - 65 11/19/2011 Normal [facility] CHEMISTRY Alk Phos 97 39 - 136 11/19/2011 Normal [facility] CHEMISTRY AST 11 0 - 37 11/19/2011 [...] MCV 93.0 81.0 - 99.0 11/19/2011 Normal [facility] HEMATOLOGY Hct 34.4 36.0 - 48.0 11/19/2011 LOW [facility] Pathology Reports No Data Provided for This [...] standard deviations (T-score) below peak bone mass. [id number] 11/30/2016 [facility] Pelvis Complete US Clinical Indication: pelvic mass; [...] Left ovary not seen. SL: NAVNEET 11/23/2016 [facility] Spine cervical wo contrast CT CT BRAIN, [...] stenosis at multiple levels. SL: 16 04/13/2015 [facility] Facial bone wo contrast CT CT BRAIN, [...] canal stenosis at multiple levels. SL: 04/13/2015 [facility] Brain wo contrast CT CT BRAIN, CERVICAL [...] canal stenosis at multiple levels. SL: 04/13/2015 [facility] Knee 1-2 Views unilateral DX LEFT KNEE [...] Knee AP and lateral SL: 13 Quirino Nunze M.D. 04/13/2015 [facility] Ankle 3 views RIGHT TIBIA/FIBULA RADIOGRAPH 4 [...] ankle mortise is grossly intact. SL: 08/08/2013 [facility] Tibia fibula series RIGHT TIBIA/FIBULA RADIOGRAPH 4 [...] mortise is grossly intact. SL: 16 08/08/2013 [facility] Consultation Notes No Data Provided for This [...] 04/13/2015 [facility] Diastolic (mm Hg) 60 04/13/2015 [facility] Temperature Oral (F) 97.5 F 04/13/2015 [facility] Respitory Rate 18 04/13/2015 [facility] Diastolic (mm Hg) 79 04/13/2015 [facility] Respitory Rate 18 04/13/2015 [facility] Systolic (mm Hg) 229 04/13/2015 [facility] Heart Rate 51 04/13/2015 [facility] Temperature Oral (F) 98.4 F 04/13/2015 [facility] Weight 90.909 04/13/2015 [facility] Height 152.4 cm 04/13/2015 [facility] BMI Calculated 39.14 04/13/2015 [facility] Temperature Oral (F) 98.2 F 04/13/2015 [facility] Respitory Rate 18 04/13/2015 [facility] Heart Rate 56 04/13/2015 [facility] Systolic (mm Hg) 234 04/13/2015 [facility] Diastolic (mm Hg) 73 04/13/2015 [facility] Temperature Oral (F) 98.0 F 08/08/2013 [facility] Respitory Rate 18 08/08/2013 [facility] Heart Rate 60 08/08/2013 [facility] Diastolic (mm Hg) 66 08/08/2013 [facility] Systolic (mm Hg) 168 08/08/2013 [facility] Height 157.48 cm 08/08/2013 [facility] Weight 72.727 08/08/2013 [facility] Respitory Rate 18 08/08/2013 [facility] Heart Rate 56 08/08/2013 [facility] Temperature Oral (F) 98.4 F 08/08/2013 [facility] Diastolic (mm Hg) 77 08/08/2013 [facility] Systolic (mm Hg) 205 08/08/2013 [facility] Encounters Location Location Details Encounter Type Encounter Number Reason For Visit Attending Provider ADM Date DC Date Status Source [facility] Outpatient [id number] RADICULOPATHY AUDREY MCNEAL 05/14/2011 Active [facility] [id number] OBINNA THAKUR 11/18/2011 11/18/2011 Discharged [facility] [id number] GIN THOMPSON 08/08/2013 08/08/2013 Active [facility] Outpatient [id number] CASSI OLMOS 04/13/[address] [facility] [id number] Sarah Betancourten 04/13/2015 04/13/2015 [facility] Outpatient [id number] CASSI OLMOS 04/18/2015 Active [facility] [id number] CASSI RECAOLE 04/29/2015 Active [facility] [id number] CASSI RECAVARROSS 05/27/2015 [facility] [id number] CASSI OLMOS 07/08/2015 Active [facility] [id number] CASSI OLMOS 07/25/2015 [facility] [id number] CASSI CHACONVARROSS 08/12/2015 [facility] [id number] BILLY LEVY 11/07/2015 [facility] [id number] CASSI RECAVARROSS 01/13/2016 Active [facility] [id number] CASSI OLMOS 04/12/2016 Active [facility] [id number] CASSI RECAVARROSS 05/04/2016 Active [facility] [id number] CASSI OLMOS 08/03/2016 Active [facility] [id number] CASSI RECAVARROSS 08/17/2016 Active [facility] [id number] CASSI RECAVARROSS 11/16/2016 Active [facility] [id number] CASSI RECAVARROSS 11/23/2016 Active [facility] Outpatient [id number] Cassi Jamison 11/23/2016 11/24/2016 [facility] Outpatient [id number] Cassi Olmos Jamison 11/30/2016 12/01/2016 [facility] Outpatient [id number] CASSI CHACONVARROSS 12/03/2016 Active [facility] [id number] CASSI OLMOS 02/08/2017 Active [facility] Outpatient [id number] CASSI OLMOS 02/18/2017 Active [facility] [id number] CASSI OLMOS 02/22/2017 Active [facility] Out[facility] [id number] CASSI OLMOS 03/01/2017 Active [facility] Outpatient [id number] CASSI OLMOS 06/06/2017 Active [facility] Outpatient [id number] CASSI OLMOS 06/13/2017 Active [facility] Outpatient [id number] Cassi Jamison 06/13/2017 06/14/2017 [facility] Outpatient [id number] CASSI OLMOS 09/19/2017 Active [facility]ulatory Pre-Reg [id number] Cassi Jamison 09/19/2017 09/19/2017 [facility] Outpatient [id number] CASSI OLMOS 09/30/2017 Active [facility] Outpatient [id number] Cassi Olmos Jamison 09/30/2017 10/01/2017 [facility] Outpatient [id number] CASSI OLMOS 01/09/2018 Active [facility] Outpatient [id number] Cassi Olmos Jamison 01/09/2018 01/10/2018 [facility] Outpatient [id number] CASSI OLMOS 06/05/2018 Active [facility] Outpatient [id number] Cassi Olmos Jamison 06/05/2018 06/06/2018 [facility] Outpatient [id number] CASSI OLMOS 07/10/2018 Active [facility] Pre-Reg [id number] Cassi Olmos Jamison 07/10/2018 07/10/2018 [facility] Outpatient [id number] CASSI OLMOS 07/14/2018 Active [facility] Outpatient [id number] Cassi Olmos Jamison 07/14/2018 07/15/2018 [facility] Outpatient [id number] Cassi Olmos Jamison 10/17/2018 Active [facility] Outpatient [id number] Cassi Olmos Jamison 10/17/2018 10/18/2018 [facility] Phone Message [id number] 11/21/2018 11/23/2018 [facility] Outpatient [id number] Cassi Olmos Jamison 01/19/2019 Active [facility] Outpatient [id number] Cassi Olmos Jamison 01/19/2019 01/20/2019 [facility] Procedures Procedure Code Date Perfomer Comments Source Glaucoma screening [id number] 02/26/2014 [facility] Procedure<sup>1</sup> [id number] 08/14/2013 right leg closed reduction [facility] Colonoscopy [id number] 03/20/2012 [facility] Bone density scan<sup>2</sup> [id number] 2008 [facility] Mammogram - screening<sup>3</sup> [id number] about 2 years ago [facility] Procedure<sup>4</sup> [id number] right breast surgery [facility] Cataract surgery<sup>3</sup> [id number] both [facility] Mammogram - screening<sup>4</sup> [id number] about 2 years ago [facility] Procedure<sup>5</sup> [id number] right breast surgery [facility] Assessment and Plan No Data Provided for This Section Plan of Care No Data Provided for This Section Social History Social History Date Source Social History TypeResponse Alcohol Never Smoking Status Never smoker; Type: Cigars; Exposure to Tobacco Smoke None; Cigarette Smoking Last 365 Days No; Reg Smoking Cessation Counseling No entered on: 01/19/19 01/13/2016 [facility] Social History TypeResponse Alcohol Never Smoking Status Never smoker; Exposure to Tobacco Smoke None; Cigarette Smoking Last 365 Days No; Reg Smoking Cessation Counseling No 01/13/2016 [facility] Family History No Data Provided for This Section Advance Directives No Data Provided for This Section Functional Status No Data Provided for This Section
[2019-04-08 14:15] VITALS: BP 150/67
--- NOTE | 2019-04-08 19:18 | Operative Report ---
DATE OF PROCEDURE: 04/08/2019 SURGEON: Sadi Kimball MD PROCEDURE: Colonoscopy with polypectomy. INDICATION FOR COLONOSCOPY: Colorectal cancer screening, anemia. MEDICATIONS: The patient was done under MAC, please see anesthesiologist's note. PROCEDURE IN DETAIL: With the patient in left lateral decubitus position, a flexible fiberoptic Olympus colonoscope was inserted into the rectum with ease and advanced all the way to the cecum. A minute polyp was removed in the cecum with the cold biopsy forceps. One polyp was hot biopsied and one polyp was snared from the ascending colon. The transverse appeared to be within normal limits. Two polyps were hot biopsied and two polyps were snared from the descending colon. Diverticular disease was noted in the sigmoid colon. The rectum appeared to be within normal limits. The scope was then retroflexed into the distal rectum and small internal hemorrhoids were noted, none of which was actively bleeding. The scope was then straightened out, it was subsequently withdrawn, and the patient tolerated the procedure well. Of note, one polypectomy site in the ascending colon was hemoclipped x1. IMPRESSION: 1. Cecal polyp, removed per cold biopsy forceps. 2. Ascending colon polyps x2, one snared, polypectomy site hemoclipped, and one hot biopsied. 3. Descending colon polyps x4, two snared and two hot biopsied. 4. Diverticulosis. 5. Internal hemorrhoids, none actively bleeding. PLAN: Follow up histology. Initiate high-fiber, low-fat diet. Initiate high-fiber supplement. Findings do not necessarily explain the patient's anemia. She might benefit from endoscopic evaluation of her upper GI tract and if negative, small bowel series and potentially capsule endoscopy. Sadi Kimball MD [facility] [place] /[id number] cc: João Rodriguez MD
== END | disposition home or self-care (01) ==
LOC: OR 11:38
PROVIDERS: ATTEND Internal Medicine Gastroenterology
DX: D64.89 Other specified anemias (principal); D12.0 Benign neoplasm of cecum; D12.2 Benign neoplasm of ascending colon; D12.4 Benign neoplasm of descending colon; R19.7 Diarrhea, unspecified; K57.30 Diverticulosis of large intestine without perforation or abscess without bleeding; K64.8 Other hemorrhoids; R14.0 Abdominal distension (gaseous); K21.9 Gastro-esophageal reflux disease without esophagitis; E78.00 Pure hypercholesterolemia, unspecified; M19.90 Unspecified osteoarthritis, unspecified site; I10 Essential (primary) hypertension; Z79.82 Long term (current) use of aspirin
CPT/HCPCS: 45380; 45384; 45385; J2704; 45378